=== PATIENT | female | born 1945 | race African-American/Black ===

== ENCOUNTER 2016-12-14 17:33 | Emergency (ER) | payer MEDICARE ==
[2016-12-14] MEDS ORDERED: ACETAMINOPHEN 325 MG TABLET PO ONE (18:11)
--- NOTE | 2016-12-14 18:11 | ER Document Report ---
ED Medical Screen (RME) - General Stated Complaint: COUGH/VOMITING Time seen by provider: 18:08 Mode of Arrival: Ambulatory Information source: Patient Notes: 71-year-old female presents to ED for runny nose cough congestion sinus pressure with headache and vomiting from the cough since yesterday. States she' s vomited 3 times today with cough. Days last time she vomited was between 3 and 4. Temperature is 99.6 in the RME. I have greeted and performed a rapid initial assessment of this patient. A comprehensive ED assessment and evaluation of the patient, analysis of test results and completion of medical decision making process will be conducted by an additional ED providers. TRAVEL OUTSIDE OF THE [place] IN LAST 30 DAYS: No - Related Data Allergies/Adverse Reactions: No Known Allergies Allergy (Verified 12/14/16 18:06) Past Medical History - Past Medical History Cardiac Medical History: Reports: Hx Hypertension Denies: Hx Coronary Artery Disease, Hx Heart Attack Pulmonary Medical History: Denies: Hx Asthma, Hx Bronchitis, Hx COPD, Hx Pneumonia Neurological Medical History: Denies: Hx Cerebrovascular Accident, Hx Seizures Musculoskeltal Medical History: Denies Hx Arthritis Past Surgical History: Denies: Hx Hysterectomy - Immunizations Hx Diphtheria, Pertussis, Tetanus Vaccination: Yes Physical Exam - Vital signs Vitals: Temp Pulse Resp BP Pulse Ox 99.6 F 101 H 20 174/84 H 97 12/14/16 17:55 12/14/16 17:55 12/14/16 17:55 12/14/16 17:55 12/14/16 17:55 Course - Vital Signs Vital signs: Temp Pulse Resp BP Pulse Ox 99.6 F 101 H 20 174/84 H 97 12/14/16 17:55 12/14/16 17:55 12/14/16 17:55 12/14/16 17:55 12/14/16 17:55
[2016-12-14] MEDS ORDERED: ONDANSETRON 4 MG TAB.RAPDIS PO ONE (19:20)
[2016-12-14] MEDS ORDERED: NORMAL SALINE 1000 ML 1,000 ML IV ONE (19:21)
[2016-12-14] MEDS ORDERED: HYDROCODONE/ACETAMINOPHEN 5-325 MG TABLET PO ONE (19:21)
--- NOTE | 2016-12-14 19:25 | ER Document Report ---
ED General - General Chief Complaint: Cold Symptoms Stated Complaint: COUGH/VOMITING Mode of Arrival: Ambulatory Notes: Patient is a 71 year old female that comes to the ED for chief complaint of cough, vomiting, chills, sinus congestion, and a headache since yesterday. Patient states she feels run down, she has vomited x3 today, she reports normal bowel movements. She denies chest pain, shortness of breath, denies any particular abdominal pain. PMH DMII on PO meds, HTN. TRAVEL OUTSIDE OF THE [place] IN LAST 30 DAYS: No - Related Data Allergies/Adverse Reactions: No Known Allergies Allergy (Verified 12/14/16 18:06) Past Medical History - General Information source: Patient - Social History Smoking Status: Never Smoker Chew tobacco use (# tins/day): No Frequency of alcohol use: None Drug Abuse: None Lives with: Family Family History: Reviewed & Not Pertinent Patient has suicidal ideation: No Patient has homicidal ideation: No - Past Medical History Cardiac Medical History: Reports: Hx Hypertension Denies: Hx Coronary Artery Disease, Hx Heart Attack Pulmonary Medical History: Denies: Hx Asthma, Hx Bronchitis, Hx COPD, Hx Pneumonia Neurological Medical History: Denies: Hx Cerebrovascular Accident, Hx Seizures Endocrine Medical History: Reports: Hx Diabetes Mellitus Type 2 Renal/ Medical History: Denies: Hx Peritoneal Dialysis Musculoskeltal Medical History: Denies Hx Arthritis Past Surgical History: Denies: Hx Hysterectomy - Immunizations Hx Diphtheria, Pertussis, Tetanus Vaccination: Yes Hx Pneumococcal Vaccination: 07/31/14 Review of Systems - Review of Systems Constitutional: No symptoms reported EENT: See HPI Cardiovascular: No symptoms reported Respiratory: See HPI Gastrointestinal: No symptoms reported Genitourinary: No symptoms reported Female Genitourinary: No symptoms reported Musculoskeletal: No symptoms reported Skin: No symptoms reported Hematologic/Lymphatic: No symptoms reported Neurological/Psychological: No symptoms reported Physical Exam - Vital signs Vitals: Temp Pulse Resp BP Pulse Ox 99.6 F 101 H 20 174/84 H 97 12/14/16 17:55 12/14/16 17:55 12/14/16 17:55 12/14/16 17:55 12/14/16 17:55 Interpretation: Normal - General General appearance: Appears well, Alert In distress: None - HEENT Head: Normocephalic, Atraumatic Eyes: Normal Pupils: PERRL - Respiratory Respiratory status: No respiratory distress. No: Respiratory distress, Labored , Tachypnea Breath sounds: Nonproductive cough. No: Decreased air movement, Rales, Stridor , Wheezing - Cardiovascular Rhythm: Regular. No: Tachycardia - no tachycardia on my exam Heart sounds: Normal auscultation, S1 appreciated, S2 appreciated Murmur: No - Abdominal Inspection: Normal Distension: No distension Bowel sounds: Normal Tenderness: Nontender Organomegaly: No organomegaly - Back Back: Normal, Nontender. 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 Clear lungs, no tachypnea or labored breathing, patient is alert and conversational. Soft benign abdomen but patient did have a vomiting episode. Given Harvest and Zofran, IV fluids. Because of age, diabetes, fever, obtaining laboratory workup. Laboratory workup shows no leukocytosis or bandemia, chemistries unremarkable, on reexamination patient is even better in appearance. Strep negative, influenza negative, pulse oxygenation ranging from 95-97% on room air with no labored breathing and clear lung sounds. Urine shows large leukocyte esterase and white blood cells, however patient denies any lower abdominal or flank pain , denies urinary symptoms. Culture placed. Family is at bedside. Patient given a dose of doxycycline although this is most likely viral in nature. Patient feeling much improved, I discussed comfort level of being at home, patient and family state they want to go home but patient will be covered with doxycycline, given nausea meds, given Harvest for pain/cough, patient instructed to return immediately if she develops shortness of breath, fever that will not respond to medication, severe headache, chest pain, or any other worsening symptoms. Patient and family members state understanding and agreement. - Vital Signs Vital signs: Temp Pulse Resp BP Pulse Ox 99.7 F 100 18 122/71 94 12/14/16 22:07 12/14/16 22:07 12/14/16 22:07 12/14/16 22:07 12/14/16 22:07 - Laboratory Result Diagrams: 12/14/16 19:52 12/14/16 19:52 Laboratory results interpreted by me: 12/14/16 12/14/16 12/14/16 19:52 19:52 19:52 Hct 35.1 L Seg Neutrophils % 85.8 H Lymphocytes % 8.2 L Absolute Neutrophils 8.3 H Sodium 130.3 L Chloride 92 L Est GFR ( Amer) 58 L Est GFR (Non-Af Amer) 48 L Glucose 111 H Urine Blood SMALL H Ur Leukocyte Esterase LARGE H Discharge - Discharge Clinical Impression: Cough, Sore throat Vomiting Qualifiers: Vomiting type: unspecified Vomiting Intractability: non-intractable Nausea presence: with nausea Qualified Code(s): R11.2 - Nausea with vomiting, unspecified Condition: Stable Disposition: HOME, SELF-CARE Additional Instructions: Your influenza and strep tests are negative, chest x-ray does not show pneumonia. Continue to hydrate, rest, take the Zofran for nausea if needed, take the Harvest for cough/pain if, take the doxycycline antibiotic as directed. Follow-up with your primary care this week for a reevaluation. Return to the emergency department for any concerning or worsening symptoms including difficulty breathing, uncontrolled vomiting, etc. Prescriptions: Doxycycline Hyclate 100 mg PO BID #14 capsule Hydrocodone/Acetaminophen [Harvest 5-325 mg Tablet] 1 - 2 tab PO ASDIR #12 tablet Ondansetron [Zofran Odt 4 mg Tablet] 1 - 2 tab PO Q4H PRN #15 tab.rapdis PRN Reason: For Nausea/Vomiting Referrals: CARI ANTONIO MD [Primary Care Provider] - Follow up in 3-5 days
[2016-12-14 20:14] LABS: ABSOLUTE LYMPHOCYTES (AUTO) 0.8 10^3/uL (0.5-4.7); ABSOLUTE MONOCYTES (AUTO) 0.5 10^3/uL (0.1-1.4); ABSOLUTE NEUT (AUTO) 8.3 10^3/uL (1.7-8.2); BASOPHILS % (AUTO) 0.3 % (0-2); EOSINOPHILS % (AUTO) 0.3 % (0-6); HEMATOCRIT 35.1 % (36.0-47.0); HEMOGLOBIN 12.1 g/dL (12.0-15.5); HGB HCT DIFFERENCE 1.2; LYMPHOCYTES % (AUTO) 8.2 % (13-45); MEAN CORPUSCULAR HGB CONC 34.4 g/dL (32.0-36.0); MEAN CORPUSCULAR VOLUME 90 fl (80-97); MONOCYTES % (AUTO) 5.4 % (3-13); RED CELL DISTRIBUTION WIDTH 13.7 % (11.5-14.0); SEGMENTED NEUTROPHILS % (AUTO) 85.8 % (42-78); WHITE BLOOD COUNT 9.7 10^3/uL (4.0-10.5)
[2016-12-14 20:33] LABS: ALANINE AMINOTRANSFERASE 32 U/L (9-52); ALBUMIN 3.8 g/dL (3.5-5.0); ALKALINE PHOSPHATASE 63 U/L (38-126); ANION GAP 10 (5-19); ASPARTATE AMINO TRANSFERASE 26 U/L (14-36); BILIRUBIN,TOTAL 0.5 mg/dL (0.2-1.3); BLOOD UREA NITROGEN 19 mg/dL (7-20); CARBON DIOXIDE 28 mmol/L (22-30); CHLORIDE 92 mmol/L (98-107); CREATININE RESULT 1.13 mg/dL (0.52-1.25); GLUCOSE 111 mg/dL (75-110); POTASSIUM 3.8 mmol/L (3.6-5.0); SODIUM 130.3 mmol/L (137-145); TOTAL PROTEIN 6.8 g/dL (6.3-8.2)
[2016-12-14 20:45] LABS: APPEARANCE,URINE SLIGHTLY-CLOUDY; BILIRUBIN,URINE NEGATIVE (NEGATIVE); GLUCOSE, URINE NEGATIVE (NEGATIVE); KETONES,URINE NEGATIVE (NEGATIVE); LEUKOCYTE ESTERASE,URINE LARGE (NEGATIVE); NITRITE,URINE NEGATIVE (NEGATIVE); PROTEIN,URINE NEGATIVE (NEGATIVE); UROBILINOGEN,URINE NEGATIVE mg/dL (<2.0)
[2016-12-14] MEDS ORDERED: HYDROCODONE/ACETAMINOPHEN 5-325 MG 6 TAB/DSPK PO PRN (21:44)
[2016-12-14] MEDS ORDERED: ONDANSETRON ODT 4 MG TAB (6 TAB/DSPK) PO PRN (21:44)
[2016-12-14] MEDS ORDERED: DOXYCYCLINE HYCLATE 100 MG TABLET PO ONE (21:44)
[2016-12-14 22:17] VITALS: BP 122/71
== END 2016-12-14 22:10 | disposition home or self-care (01) ==
LOC: ER 17:33
DX: R05 Cough (principal); R11.2 Nausea with vomiting, unspecified; J02.9 Acute pharyngitis, unspecified; R50.9 Fever, unspecified; R09.81 Nasal congestion; R51 Headache; I10 Essential (primary) hypertension; E11.9 Type 2 diabetes mellitus without complications; Z79.899 Other long term (current) drug therapy
CPT/HCPCS: 99283; 36415; 87070; 87086; 87880; 85025; 80053; 81001; 87804; 71020; A9270 ×6; J7030; S0119

== ENCOUNTER 2016-12-21 15:57 | Inpatient (IN) | payer MEDICARE ==
--- NOTE | 2016-12-21 16:12 | ER Document Report ---
ED Medical Screen (RME) - General Stated Complaint: WEAKNESS/POSSIBLE DEHYDRATION Mode of Arrival: Ambulatory Information source: Patient Notes: Patient reports feeling dehydrated and near syncope at home. Patient complains of diarrhea for the past week. No fever. No pain hx: Diabetes, hypertension I have greeted and performed a rapid initial assessment of this patient. A comprehensive ED assessment and evaluation of the patient, analysis of test results and completion of the medical decision making process will be conducted by additional ED providers. TRAVEL OUTSIDE OF THE [place] IN LAST 30 DAYS: No - Related Data Allergies/Adverse Reactions: No Known Allergies Allergy (Verified 12/21/16 16:08) Past Medical History - Past Medical History Cardiac Medical History: Reports: Hx Hypertension Denies: Hx Coronary Artery Disease, Hx Heart Attack Pulmonary Medical History: Denies: Hx Asthma, Hx Bronchitis, Hx COPD, Hx Pneumonia Neurological Medical History: Denies: Hx Cerebrovascular Accident, Hx Seizures Endocrine Medical History: Reports: Hx Diabetes Mellitus Type 2 Renal/ Medical History: Denies: Hx Peritoneal Dialysis Musculoskeltal Medical History: Denies Hx Arthritis Past Surgical History: Denies: Hx Hysterectomy - Immunizations Hx Diphtheria, Pertussis, Tetanus Vaccination: Yes Physical Exam - Vital signs Vitals: Temp Pulse Resp BP Pulse Ox 97.4 F 71 14 102/53 L 99 12/21/16 16:03 12/21/16 16:03 12/21/16 16:03 12/21/16 16:03 12/21/16 16:03 - General General appearance: Appears well, Alert In distress: None - Respiratory Respiratory status: No respiratory distress Breath sounds: Nonproductive cough Course - Vital Signs Vital signs: Temp Pulse Resp BP Pulse Ox 97.4 F 71 14 102/53 L 99 12/21/16 16:03 12/21/16 16:03 12/21/16 16:03 12/21/16 16:03 12/21/16 16:03
[2016-12-21 17:27] LABS: ABSOLUTE EOSINOPHILS # (AUTO) 0.1 10^3/uL (0.0-0.6); ABSOLUTE LYMPHOCYTES (AUTO) 1.9 10^3/uL (0.5-4.7); ABSOLUTE MONOCYTES (AUTO) 0.6 10^3/uL (0.1-1.4); ABSOLUTE NEUT (AUTO) 5.3 10^3/uL (1.7-8.2); BASOPHILS % (AUTO) 0.3 % (0-2); EOSINOPHILS % (AUTO) 1.6 % (0-6); HEMATOCRIT 38.9 % (36.0-47.0); HEMOGLOBIN 13.2 g/dL (12.0-15.5); HGB HCT DIFFERENCE 0.7; LYMPHOCYTES % (AUTO) 23.6 % (13-45); MEAN CORPUSCULAR HEMOGLOBIN 30.9 pg (27.0-33.4); MEAN CORPUSCULAR HGB CONC 34.1 g/dL (32.0-36.0); MEAN CORPUSCULAR VOLUME 91 fl (80-97); MONOCYTES % (AUTO) 7.8 % (3-13); RED BLOOD COUNT 4.29 10^6/uL (3.72-5.28); RED CELL DISTRIBUTION WIDTH 14.3 % (11.5-14.0); SEGMENTED NEUTROPHILS % (AUTO) 66.7 % (42-78); WHITE BLOOD COUNT 7.9 10^3/uL (4.0-10.5)
[2016-12-21 17:49] LABS: ALANINE AMINOTRANSFERASE 36 U/L (9-52); ALBUMIN 3.8 g/dL (3.5-5.0); ALKALINE PHOSPHATASE 72 U/L (38-126); ANION GAP 14 (5-19); ASPARTATE AMINO TRANSFERASE 29 U/L (14-36); BILIRUBIN,TOTAL 0.6 mg/dL (0.2-1.3); BLOOD UREA NITROGEN 22 mg/dL (7-20); CARBON DIOXIDE 25 mmol/L (22-30); CHLORIDE 96 mmol/L (98-107); CREATININE RESULT 2.05 mg/dL (0.52-1.25); GLUCOSE 117 mg/dL (75-110); MAGNESIUM 1.5 mg/dL (1.6-2.3); POTASSIUM 3.9 mmol/L (3.6-5.0); SODIUM 134.5 mmol/L (137-145); TOTAL PROTEIN 7.1 g/dL (6.3-8.2)
--- NOTE | 2016-12-21 20:52 | ER Document Report ---
ED GI/ - General Mode of Arrival: Ambulatory Information source: Patient TRAVEL OUTSIDE OF THE [place] IN LAST 30 DAYS: No - HPI Patient complains to provider of: Diarrhea Onset: Last week - 6 days Associated symptoms: Other - See above <MARIAH HASSAN - Last Filed: 12/21/16 23:30> <DELFINA GARDNER - Last Filed: 12/21/16 23:56> <LUAN ENCARNACION - Last Filed: 12/22/16 03:00> - General Chief Complaint: Diarrhea Stated Complaint: Diarrhea Notes: Patient is a 71 year old female, with a past medical history including HTN, who presents to the emergency department complaining of diarrhea onset 6 days ago. Patient states she was seen at this facility one week ago for cold like symptoms and was given antibiotics for a possible UTI, since her visit her cough has persisted but her shortness of breath has gone away and so has her vomiting. Patient complains of weakness and feeling tired. Patient states that the diarrhea has been fairly regular and started the day after she was given the antibiotics, patient reports she will have an episode after every meal. Patient denies any dysuria and abdominal pain. PCP: Dr. Aleman (MARIAH HASSAN) - Related Data Allergies/Adverse Reactions: No Known Allergies Allergy (Verified 12/21/16 16:08) Past Medical History - General Information source: Patient - Social History Smoking Status: Never Smoker Chew tobacco use (# tins/day): No Family History: Reviewed & Not Pertinent Patient has suicidal ideation: No Patient has homicidal ideation: No - Past Medical History Cardiac Medical History: Reports: Hx Hypertension Endocrine Medical History: Reports: Hx Diabetes Mellitus Type 2 Past Surgical History: Reports: Hx Gynecologic Surgery - , Hx Orthopedic Surgery - left shoulder - Immunizations Hx Diphtheria, Pertussis, Tetanus Vaccination: Yes Hx Pneumococcal Vaccination: 07/31/14 <MARIAH HASSAN - Last Filed: 12/21/16 23:30> Review of Systems - Review of Systems Constitutional: See HPI, Weakness, Other - Tiredness EENT: No symptoms reported Cardiovascular: No symptoms reported Respiratory: See HPI, Cough Gastrointestinal: See HPI, Diarrhea. denies: Abdominal pain, Vomiting Genitourinary: denies: Dysuria Female Genitourinary: No symptoms reported Musculoskeletal: No symptoms reported Skin: No symptoms reported Hematologic/Lymphatic: No symptoms reported Neurological/Psychological: No symptoms reported -: Yes All other systems reviewed and negative <MARIAH HASSAN - Last Filed: 12/21/16 23:30> Physical Exam - Vital signs Interpretation: Normal - General General appearance: Appears well, Alert - HEENT Head: Normocephalic, Atraumatic - Respiratory Respiratory status: No respiratory distress Chest status: Nontender Breath sounds: Normal Chest palpation: Normal - Cardiovascular Rhythm: Regular Heart sounds: Normal auscultation Murmur: No - Abdominal Inspection: Normal Distension: No distension Bowel sounds: Normal Tenderness: Nontender Organomegaly: No organomegaly - Extremities General upper extremity: Normal inspection General lower extremity: Normal inspection. No: Edema - Neurological Neuro grossly intact: Yes Cognition: Normal Orientation: AAOx4 Ashley Coma Scale Eye Opening: Spontaneous Ashley Coma Scale Verbal: Oriented Ashley Coma Scale Motor: Obeys Commands Ashley Coma Scale Total: 15 Speech: Normal - Psychological Associated symptoms: Normal affect, Normal mood - Skin Skin Temperature: Warm Skin Moisture: Dry Skin Color: Normal <MARIAH HASSAN - Last Filed: 12/21/16 23:30> Course - Laboratory Result Diagrams: 12/21/16 17:05 12/21/16 17:05 - Consults Dr. Cope Time consulted: 20:55 <MARIAH HASSAN - Last Filed: 12/21/16 23:30> - Laboratory Result Diagrams: 12/21/16 17:05 12/21/16 17:05 <DELFINA GARDNER - Last Filed: 12/21/16 23:56> - Laboratory Result Diagrams: 12/21/16 17:05 12/21/16 17:05 <LUAN ENCARNACION - Last Filed: 12/22/16 03:00> - Re-evaluation Re-evalutation: 12/21/16 21:02 I personally performed the services described in the documentation, reviewed and edited the documentation which was dictated to my scribe in my presence, and it accurately records my words and actions. Patient presents to the emergency Department with chief complaint of diarrhea since last Tuesday. Patient was seen and evaluated on Tuesday of last week placed on doxycycline for what I presume was a urinary tract infection the patient is not clear started having continuous non-bloody diarrhea since that time. States for the last day or 2 she's been unable to keep anything down because as soon as she tries to eat or drink something she has more diarrhea. On examination she is well-appearing nontoxic she's not hypotensive or tachycardic. Her urine creatinine is 19 and 1.3 at baseline on 214 and today is 22 and 2.05. She has been unable to give us a stool culture at the bedside IV fluids are started and she is admitted for observation with diarrhea stool culture pending and dehydration. Consult to Dr. Cope at 2200 he stated he cannot take any more patients right now. At 0000 he is still unable to take any new patients. Case will be signed out to Dr. Encarnacion pending admission 12/21/16 21:05 12/21/16 23:56 (DELFINA GARDNER) 12/22/16 02:[address] Cope. He has accepted patient as inpatient telemetry and recommends urine culture, blood culture, repeating BMP, magnesium and starting normal saline at 125 mL per hour. He would also like 1 g of Rocephin (LUAN ENCARNACION) - Vital Signs Vital signs: Temp Pulse Resp BP Pulse Ox 97.4 F 71 17 108/64 97 12/21/16 16:03 12/21/16 16:03 12/22/16 02:01 12/22/16 02:01 12/22/16 02:01 (MARIAH HASSAN) (EDLFINA GARDNER) (LUAN ENCARNAICON) - Laboratory Laboratory results interpreted by me: 12/21/16 12/21/16 12/21/16 17:05 17:05 22:21 RDW 14.3 H Sodium 134.5 L Chloride 96 L BUN 22 H Creatinine 2.05 H Est GFR ( Amer) 29 L Est GFR (Non-Af Amer) 24 L Glucose 117 H Magnesium 1.5 L Urine Protein 30 H Urine Blood SMALL H Ur Leukocyte Esterase SMALL H (MARIAH HASSAN) (DELFINA GARDNER) (LUAN ENCARNACION) - EKG Interpretation by Me Additional EKG results interpreted by me: 12/21/16 20:59 EKG shows sinus rhythm at 75 beats per first-degree AV block no acute ST segment elevation or depression (DELFINA GARDNER) - Consults Dr. Cope Reason for consultation: 12/21/16 20:[address] Cope to call back regarding admission 12/21/16 21:[address] Cope 12/21/16 22:37 Dr. Cope returned call, refuses to admit patient at this time after agreeing to discuss admission of 2 others (MARIAH HASSAN) Discharge <MARIAH HASSAN - Last Filed: 12/21/16 23:30> - Discharge Admitting Provider: Hospitalist Unit Admitted: Medical Floor <DELFINA GARDNER - Last Filed: 12/21/16 23:56> - Discharge Admitting Provider: [facility] Unit Admitted: Telemetry <LUAN ENCARNACION - Last Filed: 12/22/16 03:00> - Discharge Clinical Impression: acute diarrhea with dehydration Acute renal failure Qualifiers: Acute renal failure type: unspecified Qualified Code(s): N17.9 - Acute kidney failure, unspecified Condition: Stable Disposition: ADMITTED OBSERVATION Scribe Documentation - Scribe Written by Scribe:: [email or web address] Foster, 12/21/16, 2330 acting as scribe for :: New <MARIAH HASSAN - Last Filed: 12/21/16 23:30>
[2016-12-21] MEDS ORDERED: NORMAL SALINE 1000 ML 1,000 ML IV ONE (20:53)
--- NOTE | 2016-12-21 21:59 | EKG REPORT ---
SEVERITY:- ABNORMAL ECG - SINUS RHYTHM FIRST DEGREE AV BLOCK LEFT ANTERIOR FASCICULAR BLOCK LVH BY VOLTAGE : Confirmed by: Ernestine Mcintosh MD 21-Dec-2016 21:59:13
[2016-12-21 22:56] LABS: APPEARANCE,URINE SLIGHTLY-CLOUDY; BILIRUBIN,URINE NEGATIVE (NEGATIVE); GLUCOSE, URINE NEGATIVE (NEGATIVE); KETONES,URINE NEGATIVE (NEGATIVE); LEUKOCYTE ESTERASE,URINE SMALL (NEGATIVE); NITRITE,URINE NEGATIVE (NEGATIVE); PROTEIN,URINE 30 mg/dL (NEGATIVE); URINE SPECIFIC GRAVITY 1.006; UROBILINOGEN,URINE NEGATIVE mg/dL (<2.0)
[2016-12-22] MEDS ORDERED: NORMAL SALINE 1000 ML 1,000 ML IV ONE ×2 (01:23→03:00)
[2016-12-22] MEDS: MAGNESIUM SULFATE/D5W 100 ML IV SCH ×2 (03:09→05:00)
[2016-12-22] MEDS ORDERED: DEXTROSE 50%-WATER 25 GM/50 ML DISP.SYRIN IV PRN ×2 (04:55)
[2016-12-22] MEDS ORDERED: GLUCAGON,HUMAN RECOMB 1 MG INJ IM PRN (04:55)
[2016-12-22] MEDS ORDERED: DEXTROSE 40% GEL 15 GM TUBE PO PRN ×2 (04:55)
[2016-12-22] MEDS ORDERED: INSULIN LISPRO 100 UNIT/ML 3 ML VIAL SUBCUT PRN (04:55)
[2016-12-22] MEDS ORDERED: ACETAMINOPHEN 325 MG TABLET PO PRN (05:10)
[2016-12-22] MEDS ORDERED: NORMAL SALINE 1000 ML 1,000 ML IV PRN ×2 (05:14→13:37)
--- NOTE | 2016-12-22 05:22 | PDOC H&P ---
History of Present Illness Admission Date/PCP: 12/21/16 23:48 CARI ANTONIO MD Patient complains of: Diarrhea History of Present Illness: ZELDA BAZZI is a 71 year old -Russian female with underlying hyperlipidemia, type II diabetes mellitus, hypothyroidism, hypertension, and arthritis who presents to the emergency room for evaluation of above complaint. Was seen in our emergency room one week ago for cold-like symptoms and given antibiotics for possible UTI. Patient thinks doxycycline. Was also experiencing nausea and vomiting at that time, but no diarrhea. Approximately 2 days after starting the antibiotics, her cold symptoms, nausea and vomiting had resolved, but patient began experiencing nonbloody non-melenic diarrhea after each meal. No diarrhea between meals. No friends or family with similar complaints. No unusual oral intake. Complaining of fatigue and generalized weakness. No dysuria or abdominal pain. No history of Clostridium difficile infection. Patient has been discussed with emergency room physician who evaluated the patient. . Laboratory results are listed in [facility] and are reviewed. X-ray summary results are listed below, with full report(s) reviewed. . EKG reviewed. No prior EKG available for comparison. Social history/personal habits: . Has children. Son lives with her. 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 No use of alcohol tobacco or illicit drugs. Allergies/adverse reactions NKDA. Home medications are reviewed by discussion with patient and have been reconciled by nursing staff in [facility]. [facility] may not accurately reflect patient's true medications, dosages, and/or frequencies. REVIEW OF SYSTEMS: Constitutional: No fever or chills. Eyes: Wears glasses. ENT: No swallowing problems or complaints. No hearing problems or complaints. Pulmonary: No current complaints. Cardiovascular: No current complaints, including chest pain. Gastrointestinal: See history and present illness. Skin: No current complaints, including rashes. Hematologic: Easy bruising. Neurologic: No current complaints, including numbness or tingling. Musculoskeletal: Joint pain from arthritis. Psychiatric: No current complaints, including anxiety or depression. Endocrine: No current complaints, including polyuria. Genitourinary: No current complaints, including dysuria. PHYSICAL EXAMINATION: 5 feet 4 inches tall. 63.1 kg. BMI 23.9 kg/m. Blood pressure 120/57. Pulse 88 and regular. 97% saturation on room air. Respirations are 13 and unlabored. Temperature 97.4. Well-nourished well-developed -Russian female appearing approximately her stated age. Pleasant awake alert and cooperative. Mildly anxious. No agitation. Perhaps slightly fatigued. 2 sons are present; patient approves. Emergency room nurse Mable is present. Skin is warm and dry. No grossly obvious evidence of rash in areas of skin examined. No subcutaneous nodules palpated. ENT: Hearing grossly normal to normal conversation. Tongue midline on protrusion pink and slightly tacky. Eyes: No scleral icterus. Pupils equal and reactive to light at 4 mm. [place] conjunctivae. Neck is supple and nontender to gentle active range of motion and palpation. Midline trachea. No palpable thyroid nodule mass enlargement or tenderness. Lymphatic: No palpable cervical or clavicular nodes. Neck and lymphatic exams limited by patient body habitus. Psychiatric: Reasonable insight into acute and chronic medical issues. Oriented to time location and why here. Lungs: Auscultation reveals clear and equal breath sounds bilaterally. No use of accessory respiratory muscles. Cardiovascular: Heart regular rate and rhythm, without gallop murmur or rub. No carotid or abdominal aortic bruits. No ankle or pedal edema. Faintly palpable dorsalis pedis pulses. Abdomen: soft, slightly, distended nontender with positive bowel sounds. Unable to adequately evaluate abdomen for masses or organomegaly due to distention. Extremities: Feet are warm and dry. No calf tenderness to compression. No grossly obvious visual evidence of calf swelling. Gentle manipulation of lower extremities fails to reveal any obvious evidence of injury or instability to knees hips or ankles. Neurologic: Moves upper extremities grossly normally. Patellar reflexes absent. Absent Babinski. Light touch is intact at feet. Dorsiflexion and plantarflexion of feet 5 / 5 and symmetric. Past Medical History Cardiac Medical History: Reports: Hyperlipidema, Hypertension Denies: Congestive Heart Failure, Coronary Artery Disease, DVT, Myocardial Infarction, Pulmonary Embolism Pulmonary Medical History: Denies: Asthma, Bronchitis, Chronic Obstructive Pulmonary Disease (COPD), Pneumonia EENT Medical History: Reports: Eyes - Glasses Denies: Ears, Throat Neurological Medical History: Denies: Hemorrhagic CVA, Ischemic CVA, Seizures Endocrine Medical History: Reports: Diabetes Mellitus Type 2 Renal/ Medical History: Reports: None GI Medical History: Denies: Cirrhosis, Gastroesophageal Reflux Disease, Hepatitis, Peptic Ulcer Disease Musculoskeltal Medical History: Reports: Arthritis Skin Medical History: Reports: None Denies: Eczema, Psoriasis Psychiatric Medical History: Denies: Alcohol Dependency, Depression, General Anxiety Disorder, Substance Abuse, Tobacco Dependency Hematology: Reports: Other - Easy bruising Denies: Anemia Infectious Medical History: Denies: Clostridium Difficile, Hepatitis B, Hepatitis C Past Surgical History Past Surgical History: Reports: Orthopedic Surgery - left shoulder Denies: Hysterectomy Social History Information Source: Patient, Emergency Med Personnel, Outside Facility Records Lives with: Family Smoking Status: Never Smoker Frequency of Alcohol Use: None Drugs: None - Advance Directive Resuscitation Status: Full Code Surrogate healthcare decision maker:: Family Family History Family History: Reviewed & Not Pertinent Parental Family History Reviewed: Yes Children Family History Reviewed: Yes Sibling(s) Family History Reviewed.: Yes Medication/Allergy Home Medications: Aspirin [Ecotrin] 81 mg PO DAILY 04/01/16 Benazepril/Hydrochlorothiazide [Benazepril-Hctz 20-25 mg Tab] 1 tab PO DAILY 12/16 Carvedilol [Coreg] 25 mg PO Q12 04/01/16 Cetirizine HCl [Zyrtec 10 mg Tablet] 10 mg PO DAILY 04/01/16 Diltiazem HCl [Diltiazem 24Hr Cd] 360 mg PO DAILY 04/01/16 Levothyroxine Sodium [Synthroid 0.075 mg Tablet] 0.075 mg PO DAILY 04/01/16 Linagliptin/Metformin HCl [Jentadueto 2.5 mg-1000 mg Tab] 1 tab PO BID 04/01/16 Lovastatin [Altoprev] 20 mg PO QHS 04/01/16 Montelukast Sodium 10 mg PO QHS 04/01/16 Multivitamin [Multivitamins] 1 each PO DAILY 04/01/16 Allergies/Adverse Reactions: No Known Allergies Allergy (Verified 12/21/16 16:08) Physical Exam Vital Signs: Temp Pulse Resp BP Pulse Ox 97.4 F 71 17 108/64 97 12/21/16 16:03 12/21/16 16:03 12/22/16 02:01 12/22/16 02:01 12/22/16 02:01 Results Impressions: Chest X-Ray 12/21/16 16:11 IMPRESSION: NO SIGNIFICANT RADIOGRAPHIC FINDING IN THE CHEST. Assessment & Plan - Diagnosis (1) Abnormal urinalysis Is this a current diagnosis for this admission?: YesPlan: Negative urine culture from the 14th of this month. Blood and repeat urine cultures obtained. Has received one dose of intravenous antibiotics; will hold further at this point in time. (2) Acute renal failure (ARF) Qualifiers: Acute renal failure type: unspecified Qualified Code(s): N17.9 - Acute kidney failure, unspecified Is this a current diagnosis for this admission?: YesPlan: Likely prerenal in nature. IV fluids. Serial chemistry. Renal ultrasound results noted. I have strongly encouraged patient not to get out of bed without notifying staff , to avoid a fall with injury. Knee high SCDs for DVT prophylaxis, along with subcutaneous heparin. Impression and plans were discussed with patient, and sons, all of whom concur. Time spent in evaluation and management of patient: 65 minutes. (3) Diarrhea Qualifiers: Diarrhea type: unspecified type Qualified Code(s): R19.7 - Diarrhea , unspecified Is this a current diagnosis for this admission?: YesPlan: Stool for C. difficile pending. (4) Hypomagnesemia Is this a current diagnosis for this admission?: YesPlan: Magnesium supplement, with follow-up level. (5) Diabetes mellitus type 2 in nonobese Is this a current diagnosis for this admission?: YesPlan: Clinical liquid diet. Accu-Cheks with appropriate sliding scale coverage.Resume home medications as appropriate once these have been reviewed. (6) Hyperlipidemia Qualifiers: Hyperlipidemia type: unspecified Qualified Code(s): E78.5 - Hyperlipidemia, unspecified Is this a current diagnosis for this admission?: YesPlan: Resume home medications as appropriate once these have been reviewed. (7) Hypothyroid Qualifiers: Hypothyroidism type: unspecified Qualified Code(s): E03.9 - Hypothyroidism, unspecified Is this a current diagnosis for this admission?: YesPlan: Resume home medications as appropriate once these have been reviewed. - Inpatient Certification Based on my medical assessment, after consideration of the patient's comorbidities, presenting symptoms, or acuity I expect that the services needed warrant INPATIENT care.: Yes I certify that my determination is in accordance with my understanding of Medicare's requirements for reasonable and necessary INPATIENT services [42 CFR 412.3e].: Yes Medical Necessity: Need Close Monitoring Due to Risk of Patient Decompensation, Need For IV Fluids, Risk of Complication if Not Cared For in Hospital, Risk of Diagnosis Which Will Require Inpatient Eval/Care/Monitoring Post Hospital Care: D/C or Transfer Summary
[2016-12-22 06:12] LABS: ABSOLUTE EOSINOPHILS # (AUTO) 0.1 10^3/uL (0.0-0.6); ABSOLUTE LYMPHOCYTES (AUTO) 1.7 10^3/uL (0.5-4.7); ABSOLUTE MONOCYTES (AUTO) 0.6 10^3/uL (0.1-1.4); ABSOLUTE NEUT (AUTO) 3.9 10^3/uL (1.7-8.2); BASOPHILS % (AUTO) 0.5 % (0-2); EOSINOPHILS % (AUTO) 1.6 % (0-6); HEMATOCRIT 34.7 % (36.0-47.0); HEMOGLOBIN 11.9 g/dL (12.0-15.5); LYMPHOCYTES % (AUTO) 27.2 % (13-45); MEAN CORPUSCULAR HEMOGLOBIN 31.1 pg (27.0-33.4); MEAN CORPUSCULAR HGB CONC 34.3 g/dL (32.0-36.0); MEAN CORPUSCULAR VOLUME 91 fl (80-97); MONOCYTES % (AUTO) 9.3 % (3-13); RED BLOOD COUNT 3.83 10^6/uL (3.72-5.28); RED CELL DISTRIBUTION WIDTH 13.8 % (11.5-14.0); SEGMENTED NEUTROPHILS % (AUTO) 61.4 % (42-78); WHITE BLOOD COUNT 6.3 10^3/uL (4.0-10.5)
[2016-12-22 06:28] LABS: POTASSIUM 3.5 mmol/L (3.6-5.0)
[2016-12-22 06:29] LABS: ANION GAP 12 (5-19); BLOOD UREA NITROGEN 20 mg/dL (7-20); CARBON DIOXIDE 21 mmol/L (22-30); CHLORIDE 105 mmol/L (98-107); CREATININE RESULT 1.56 mg/dL (0.52-1.25); GLUCOSE 120 mg/dL (75-110); MAGNESIUM 1.7 mg/dL (1.6-2.3); SODIUM 138.2 mmol/L (137-145)
[2016-12-22] MEDS: HEPARIN SOD (PORCINE) 5,000 UNIT/ML 1 ML SYRINGE SUBCUT SCH ×2 (10:14→22:36)
[2016-12-22] MEDS ORDERED: LEVOTHYROXINE SODIUM 0.075 MG TABLET PO ONE (11:00)
[2016-12-22] MEDS ORDERED: CARVEDILOL 12.5 MG TABLET PO ONE (11:30)
[2016-12-22] MEDS ORDERED: DILTIAZEM HCL 120 MG CAP.SR.24H PO ONE (11:30)
--- NOTE | 2016-12-22 16:47 | PDOC PROGRESS REPORT ---
Subjective Progress Note for:: 12/22/16 Subjective:: The patient was seen earlier today on rounds. Patient states that she feels much improved in comparison to when she came in. The patient is tolerating clear liquids without issue. Patient is willing to try solid foods at this time. The patient denies any nausea, vomiting, diarrhea, shortness of breath, dizziness, chest pain, heart palpitations, fevers, or chills. The patient has remained afebrile. Blood pressures have been in a good range. When prompted the patient voices no other concerns at this time. Review of systems: The rest of the review of systems is negative. Physical Exam Vital Signs: Temp Pulse Resp BP Pulse Ox 98.4 F 91 14 116/62 100 12/22/16 11:10 12/22/16 11:10 12/22/16 11:10 12/22/16 11:10 12/22/16 11:10 Intake & Output 12/20/16 12/21/16 12/22/16 23:59 23:59 23:59 Weight 63.6 kg General appearance: PRESENT: no acute distress, cooperative, well-developed, well-nourished Head exam: PRESENT: atraumatic, normocephalic Eye exam: PRESENT: conjunctiva pink, EOMI, PERRLA. ABSENT: scleral icterus Ear exam: PRESENT: normal external ear exam Mouth exam: PRESENT: moist, tongue midline Neck exam: ABSENT: carotid bruit, JVD, lymphadenopathy, thyromegaly Respiratory exam: PRESENT: clear to auscultation leonora, symmetrical, unlabored. ABSENT: rales, rhonchi, tachypnea, wheezes Cardiovascular exam: PRESENT: RRR. ABSENT: diastolic murmur, rubs, systolic murmur Pulses: PRESENT: normal dorsalis pedis pul Vascular exam: PRESENT: normal capillary refill GI/Abdominal exam: PRESENT: normal bowel sounds, soft. ABSENT: distended, guarding, mass, organolmegaly, rebound, tenderness Rectal exam: PRESENT: deferred Extremities exam: PRESENT: full ROM. ABSENT: calf tenderness, clubbing, pedal edema Neurological exam: PRESENT: alert, awake, oriented to person, oriented to place , oriented to time, oriented to situation, CN II-XII grossly intact. ABSENT: motor sensory deficit Psychiatric exam: PRESENT: appropriate affect, normal mood. ABSENT: homicidal ideation, suicidal ideation Skin exam: PRESENT: dry, intact, warm. ABSENT: cyanosis, rash Results Laboratory Results: 12/22/16 06:00 12/22/16 06:00 12/22/16 12/22/16 06:00 06:00 WBC 6.3 RBC 3.83 Hgb 11.9 L Hct 34.7 L MCV 91 MCH 31.1 MCHC 34.3 RDW 13.8 Plt Count 282 Seg Neutrophils % 61.4 Lymphocytes % 27.2 Monocytes % 9.3 Eosinophils % 1.6 Basophils % 0.5 Absolute Neutrophils 3.9 Absolute Lymphocytes 1.7 Absolute Monocytes 0.6 Absolute Eosinophils 0.1 Absolute Basophils 0.0 Sodium 138.2 Potassium 3.5 L Chloride 105 Carbon Dioxide 21 L Anion Gap 12 BUN 20 Creatinine 1.56 H Est GFR ( Amer) 40 L Est GFR (Non-Af Amer) 33 L Glucose 120 H Calcium 9.0 Magnesium 1.7 Impressions: Chest X-Ray 12/21/16 16:11 IMPRESSION: NO SIGNIFICANT RADIOGRAPHIC FINDING IN THE CHEST. Renal Ultrasound 12/22/16 00:00 IMPRESSION: NORMAL RENAL AND BLADDER ULTRASOUND. Incidental renal cysts noted. Assessment & Plan - Diagnosis (1) Acute gastroenteritis Is this a current diagnosis for this admission?: YesPlan: Patient symptoms overall are much improved. Patient has had no further diarrhea since admission. (2) Prerenal azotemia Is this a current diagnosis for this admission?: YesPlan: The patient creatinine has improved but will continue to hydrate and repeat care in the a.m. (3) Diarrhea Qualifiers: Diarrhea type: unspecified type Qualified Code(s): R19.7 - Diarrhea , unspecified Is this a current diagnosis for this admission?: Yes (4) Hypomagnesemia Is this a current diagnosis for this admission?: YesPlan: This is been supplemented (5) Diabetes mellitus type 2 in nonobese Is this a current diagnosis for this admission?: YesPlan: Will continue sliding-scale coverage (6) Hyperlipidemia Qualifiers: Hyperlipidemia type: unspecified Qualified Code(s): E78.5 - Hyperlipidemia, unspecified Is this a current diagnosis for this admission?: Yes (7) Hypothyroid Qualifiers: Hypothyroidism type: unspecified Qualified Code(s): E03.9 - Hypothyroidism, unspecified Is this a current diagnosis for this admission?: YesPlan: Will continue home medications. - Time Time Spent with patient: 25-34 minutes Medications reviewed and adjusted accordingly: Yes Anticipated discharge: Home Within: within 24 hours, within 48 hours
[2016-12-22] MEDS ORDERED: POTASSIUM CHLORIDE 10 MEQ TABLET.SA PO ONE (18:30)
[2016-12-22] MEDS ORDERED: MONTELUKAST SODIUM 10 MG TABLET PO SCH (22:00)
[2016-12-22] MEDS ORDERED: (PENDING PHARMACY ID) (Carvedilol [Coreg] 25 MG) PO SCH (22:00)
[2016-12-22] MEDS ORDERED: (PENDING PHARMACY ID) (Lovastatin [Altoprev] 20 MG) PO SCH (22:00)
[2016-12-22] MEDS: LACTOBACILLUS ACIDOPHILUS 250 MG TAB PO SCH (22:36)
[2016-12-22] MEDS: CARVEDILOL 12.5 MG TABLET PO SCH (22:37)
[2016-12-23] MEDS ORDERED: LEVOTHYROXINE SODIUM 0.075 MG TABLET PO SCH ×2 (05:30→10:00)
[2016-12-23 07:06] LABS: ANION GAP 9 (5-19); BLOOD UREA NITROGEN 14 mg/dL (7-20); CALCIUM 8.9 mg/dL (8.4-10.2); CARBON DIOXIDE 24 mmol/L (22-30); CHLORIDE 107 mmol/L (98-107); CREATININE RESULT 1.15 mg/dL (0.52-1.25); GLUCOSE 101 mg/dL (75-110); MAGNESIUM 1.4 mg/dL (1.6-2.3); POTASSIUM 3.7 mmol/L (3.6-5.0); SODIUM 140.3 mmol/L (137-145)
[2016-12-23] MEDS ORDERED: DILTIAZEM HCL 360 MG PO SCH (10:00)
[2016-12-23] MEDS ORDERED: ASPIRIN 81 MG TABLET, ENT COATED PO SCH (10:00)
[2016-12-23] MEDS ORDERED: MULTIVITAMIN TABLET PO SCH (10:00)
[2016-12-23] MEDS ORDERED: DILTIAZEM HCL 120 MG CAP.SR.24H PO SCH (10:00)
[2016-12-23] MEDS: CARVEDILOL 12.5 MG TABLET PO SCH (11:10)
[2016-12-23] MEDS: LACTOBACILLUS ACIDOPHILUS 250 MG TAB PO SCH (11:13)
[2016-12-23] MEDS: HEPARIN SOD (PORCINE) 5,000 UNIT/ML 1 ML SYRINGE SUBCUT SCH (11:15)
[2016-12-23 11:41] VITALS: BP 151/71
[2016-12-23] MEDS ORDERED: ATORVASTATIN CALCIUM 10 MG TABLET PO SCH (22:00)
--- NOTE | 2016-12-24 12:44 | PDOC DISCHARGE SUMMARY ---
General - Admit/Disc Date/PCP Admission Date/Primary Care Provider: 12/22/16 05:10 CARI ANTONIO MD Discharge Date: 12/23/16 - Discharge Diagnosis (1) Acute gastroenteritis Is this a current diagnosis for this admission?: Yes (2) Prerenal azotemia Is this a current diagnosis for this admission?: Yes (3) Hypomagnesemia Is this a current diagnosis for this admission?: Yes (4) Diabetes mellitus type 2 in nonobese Is this a current diagnosis for this admission?: Yes (5) Hyperlipidemia Is this a current diagnosis for this admission?: Yes (6) Hypothyroid Is this a current diagnosis for this admission?: Yes - Additional Information Resuscitation Status: Full Code Discharge Diet: As Tolerated, Regular Discharge Activity: Activity As Tolerated Home Medications: Aspirin [Ecotrin] 81 mg PO DAILY 04/01/16 Benazepril/Hydrochlorothiazide [Benazepril-Hctz 20-25 mg Tab] 1 tab PO DAILY 12/16 Carvedilol [Coreg] 25 mg PO Q12 04/01/16 Cetirizine HCl [Zyrtec 10 mg Tablet] 10 mg PO DAILY 04/01/16 Diltiazem HCl [Diltiazem 24Hr Cd] 360 mg PO DAILY 04/01/16 Levothyroxine Sodium [Synthroid 0.075 mg Tablet] 0.075 mg PO DAILY 04/01/16 Linagliptin/Metformin HCl [Jentadueto 2.5 mg-1000 mg Tab] 1 tab PO BID 04/01/16 Lovastatin [Altoprev] 20 mg PO QHS 04/01/16 Montelukast Sodium 10 mg PO QHS 04/01/16 Multivitamin [Multivitamins] 1 each PO DAILY 04/01/16 History of Present Illness Patient complains of: Diarrhea History of Present Illness: ZELDA BAZZI is a 71 year old -Congol[place] female with underlying hyperlipidemia, type II diabetes mellitus, hypothyroidism, hypertension, and arthritis who presents to the emergency room for evaluation of above complaint. Was seen in our emergency room one week ago for cold-like symptoms and given antibiotics for possible UTI. Patient thinks doxycycline. Was also experiencing nausea and vomiting at that time, but no diarrhea. Approximately 2 days after starting the antibiotics, her cold symptoms, nausea and vomiting had resolved, but patient began experiencing nonbloody non-melenic diarrhea after each meal. No diarrhea between meals. No friends or family with similar complaints. No unusual oral intake. Complaining of fatigue and generalized weakness. No dysuria or abdominal pain. No history of Clostridium difficile infection. Hospital Course Hospital Course: The patient was admitted to a continuous telemetry unit. The patient maintained NPO status and aggressively hydrated. The patient's symptoms improved quickly and the patient was advanced to clear liquid diet. The patient's symptoms of abdominal pain and diarrhea were managed with appropriate probiotic, analgesia and/or antiemetic. The patient is now able to maintain hydration. The patient' s creatinine has normalized. . The patient had complete symptom resolution and is ready for discharge. Physical Exam Vital Signs: Temp Pulse Resp BP Pulse Ox 97.6 F 74 16 151/71 H 99 12/23/16 11:43 12/23/16 11:43 12/23/16 11:43 12/23/16 11:43 12/23/16 11:43 Intake & Output 12/21/16 12/22/16 12/23/16 23:59 23:59 23:59 Intake Total 1290 646 Output Total 1300 1000 Balance -10 -354 Weight 63.6 kg General appearance: PRESENT: no acute distress, cooperative, well-developed, well-nourished Head exam: PRESENT: atraumatic, normocephalic Eye exam: PRESENT: conjunctiva pink, EOMI, PERRLA. ABSENT: scleral icterus Ear exam: PRESENT: normal external ear exam Mouth exam: PRESENT: moist, tongue midline Neck exam: ABSENT: carotid bruit, JVD, lymphadenopathy, thyromegaly Respiratory exam: PRESENT: clear to auscultation leonora, symmetrical, unlabored. ABSENT: rales, rhonchi, tachypnea, wheezes Cardiovascular exam: PRESENT: RRR. ABSENT: diastolic murmur, rubs, systolic murmur Pulses: PRESENT: normal dorsalis pedis pul Vascular exam: PRESENT: normal capillary refill GI/Abdominal exam: PRESENT: normal bowel sounds, soft. ABSENT: distended, guarding, mass, organolmegaly, rebound, tenderness Rectal exam: PRESENT: deferred Extremities exam: PRESENT: full ROM. ABSENT: calf tenderness, clubbing, pedal edema Neurological exam: PRESENT: alert, awake, oriented to person, oriented to place , oriented to time, oriented to situation, CN II-XII grossly intact. ABSENT: motor sensory deficit Psychiatric exam: PRESENT: appropriate affect, normal mood. ABSENT: homicidal ideation, suicidal ideation Skin exam: PRESENT: dry, intact, warm. ABSENT: cyanosis, rash Results Laboratory Results: Labs- Last Values WBC 6.3 10^3/uL (4.0-10.5) 12/22/16 06:00 RBC 3.83 10^6/uL (3.72-5.28) 12/22/16 06:00 Hgb 11.9 g/dL (12.0-15.5) L 12/22/16 06:00 Hct 34.7 % (36.0-47.0) L 12/22/16 06:00 MCV 91 fl (80-97) 12/22/16 06:00 MCH 31.1 pg (27.0-33.4) 12/22/16 06:00 MCHC 34.3 g/dL (32.0-36.0) 12/22/16 06:00 RDW 13.8 % (11.5-14.0) 12/22/16 06:00 Plt Count 282 10^3/uL (150-450) 12/22/16 06:00 Seg Neutrophils % 61.4 % (42-78) 12/22/16 06:00 Lymphocytes % 27.2 % (13-45) 12/22/16 06:00 Monocytes % 9.3 % (3-13) 12/22/16 06:00 Eosinophils % 1.6 % (0-6) 12/22/16 06:00 Basophils % 0.5 % (0-2) 12/22/16 06:00 Absolute Neutrophils 3.9 10^3/uL (1.7-8.2) 12/22/16 06:00 Absolute Lymphocytes 1.7 10^3/uL (0.5-4.7) 12/22/16 06:00 Absolute Monocytes 0.6 10^3/uL (0.1-1.4) 12/22/16 06:00 Absolute Eosinophils 0.1 10^3/uL (0.0-0.6) 12/22/16 06:00 Absolute Basophils 0.0 10^3/uL (0.0-0.2) 12/22/16 06:00 Sodium 140.3 mmol/L (137-145) 12/23/16 06:42 Potassium 3.7 mmol/L (3.6-5.0) 12/23/16 06:42 Chloride 107 mmol/L (98-107) 12/23/16 06:42 Carbon Dioxide 24 mmol/L (22-30) 12/23/16 06:42 Anion Gap 9 (5-19) 12/23/16 06:42 BUN 14 mg/dL (7-20) 12/23/16 06:42 Creatinine 1.15 mg/dL (0.52-1.25) 12/23/16 06:42 Est GFR ( Amer) 56 (>60) L 12/23/16 06:42 Est GFR (Non-Af Amer) 47 (>60) L 12/23/16 06:42 Glucose 101 mg/dL (75-110) 12/23/16 06:42 POC Glucose 90 mg/dL (70-110) 12/23/16 05:23 Calcium 8.9 mg/dL (8.4-10.2) 12/23/16 06:42 Magnesium 1.4 mg/dL (1.6-2.3) L 12/23/16 06:42 Total Bilirubin 0.6 mg/dL (0.2-1.3) 12/21/16 17:05 Direct Bilirubin 0.0 mg/dL (0.0-0.3) 12/21/16 17:05 AST 29 U/L (14-36) 12/21/16 17:05 ALT 36 U/L (9-52) 12/21/16 17:05 Alkaline Phosphatase 72 U/L (38-126) 12/21/16 17:05 Total Protein 7.1 g/dL (6.3-8.2) 12/21/16 17:05 Albumin 3.8 g/dL (3.5-5.0) 12/21/16 17:05 Urine Color YELLOW 12/21/16 22:21 Urine Appearance SLIGHTLY-CLOUDY 12/21/16 22:21 Urine pH 5.0 (5.0-9.0) 12/21/16 22:21 Ur Specific [place] 1.006 12/21/16 22:21 Urine Protein 30 mg/dL (NEGATIVE) H 12/21/16 22:21 Urine Glucose (UA) NEGATIVE mg/dL (NEGATIVE) 12/21/16 22:21 Urine Ketones NEGATIVE mg/dL (NEGATIVE) 12/21/16 22:21 Urine Blood SMALL (NEGATIVE) H 12/21/16 22:21 Urine Nitrite NEGATIVE (NEGATIVE) 12/21/16 22:21 Urine Bilirubin NEGATIVE (NEGATIVE) 12/21/16 22:21 Urine Urobilinogen NEGATIVE mg/dL (<2.0) 12/21/16 22:21 Ur Leukocyte Esterase SMALL (NEGATIVE) H 12/21/16 22:21 Urine WBC (Auto) 2 /HPF 12/21/16 22:21 Urine RBC (Auto) 1 /HPF 12/21/16 22:21 Squamous Epi Cells Auto 1 /HPF 12/21/16 22:21 Urine Mucus (Auto) RARE /LPF 12/21/16 22:21 Urine Ascorbic Acid NEGATIVE (NEGATIVE) 12/21/16 22:21 Impressions: Chest X-Ray 12/21/16 16:11 IMPRESSION: NO SIGNIFICANT RADIOGRAPHIC FINDING IN THE CHEST. Renal Ultrasound 12/22/16 00:00 IMPRESSION: NORMAL RENAL AND BLADDER ULTRASOUND. Incidental renal cysts noted. Qualifiers PATEINT BEING DISCHARGED WITH ANY OF THE FOLLOWING DIAGNOSIS?: No Plan Discharge Plan: The patient is advised to follow with primary care provider within one week for hospital follow-up. Time Spent: Less than 30 Minutes
== END 2016-12-23 12:49 | disposition home or self-care (01) | DRG 641 ==
LOC: ER 15:57 → EH 23:48 → UNDOADMOB 23:48 → OBSVTOIN 12-22 05:10 → EH 12-22 05:10 → 4S 12-22 07:39
PROVIDERS: ADMIT Family Medicine; ATTEND Family Medicine
DX: E86.0 Dehydration (principal); K52.9 Noninfective gastroenteritis and colitis, unspecified; E83.42 Hypomagnesemia; E78.5 Hyperlipidemia, unspecified; E03.9 Hypothyroidism, unspecified; E11.9 Type 2 diabetes mellitus without complications; I10 Essential (primary) hypertension; M19.90 Unspecified osteoarthritis, unspecified site; R39.2 Extrarenal uremia
CPT/HCPCS: 36415; 71020; 76770; 80048; 80053; 81001; 82962; 83735; 85025; 87040; 87086; 93005; 93010; 96365; 99285; J1644; J3475; J7030

== ENCOUNTER → 2017-03-10 | Outpatient (CLI) | payer MEDICARE | LOC: OD 12:06 | PROVIDERS: ATTEND Urology | DX: K58.9 Irritable bowel syndrome, unspecified (principal); K59.00 Constipation, unspecified; I10 Essential (primary) hypertension; E13.9 Other specified diabetes mellitus without complications; E03.9 Hypothyroidism, unspecified | CPT/HCPCS: 74020 ==

== ENCOUNTER → 2017-11-01 | Outpatient (CLI) | payer MEDICARE ==
--- NOTE | 2017-11-01 12:27 | RADIOLOGY REPORT (SQ) ---
EXAM DESCRIPTION: KNEE BILATERAL 1-2 VIEWS COMPLETED DATE/TIME: 11/01/2017 11:43 am REASON FOR STUDY: YUDY KNEE PAIN M25.562 PAIN IN LEFT KNEE M25.561 PAIN IN RIGHT KNEE COMPARISON: None. NUMBER OF VIEWS: Five views. TECHNIQUE: AP and lateral standing bilateral knees. LIMITATIONS: None. FINDINGS: MINERALIZATION: Normal. RIGHT KNEE BONES: No acute fracture. No worrisome bone lesions. MEDIAL COMPARTMENT: No significant osteophytes. Minimal joint space narrowing No chondrocalcinosi s. LATERAL COMPARTMENT: No significant osteophytes. Minimal joint space narrowing No chondrocalcinos is. LEFT KNEE BONES: No acute fracture. No worrisome bone lesions. MEDIAL COMPARTMENT: No significant osteophytes. Minimal joint space narrowing No chondrocalcinosi s. LATERAL COMPARTMENT: No significant osteophytes. Minimal joint space narrowing No chondrocalcinos is. IMPRESSION: Minimal symmetrical degenerative narrowing of the knee joint compartments. Mild degener ative narrowing of the patellofemoral joints. No other abnormality identified. No significant findi ng to explain the patient's pre patella symptoms. TECHNICAL DOCUMENTATION: JOB ID: [id number] [employer]- All Rights Reserved
== END ==
LOC: OD 11:23
PROVIDERS: ATTEND Physician Assistant Medical
DX: M25.562 Pain in left knee (principal); M25.561 Pain in right knee; M17.0 Bilateral primary osteoarthritis of knee

== ENCOUNTER → 2017-11-24 | Outpatient (CLI) | payer MEDICARE ==
--- NOTE | 2017-11-24 14:52 | RADIOLOGY REPORT (SQ) ---
EXAM DESCRIPTION: MRI LT LOWER JOINT WITHOUT COMPLETED DATE/TIME: 11/24/2017 1:19 pm REASON FOR STUDY: PAIN IN L KNEE M25.562 PAIN IN LEFT KNEE COMPARISON: None. TECHNIQUE: Leftknee images acquired and stored on PACS. Multiplanar images include fat sensitive se quences as T1, water sensitive sequences as FST2 or STIR, cartilage sensitive sequences as FSPD, and gradient echo sequences. LIMITATIONS: None. FINDINGS: JOINT AND BURSAE: Joint effusion. BONE CORTEX AND MARROW: No alteration of signal to suggest marrow replacement. No worrisome bone lesi ons. No occult fracture. ACL: Intact. No degeneration or ganglion cyst. PCL: Intact. MCL: Intact. No periligamentous edema or fluid. LCL: Intact. No periligamentous edema or fluid. MEDIAL MENISCUS: Intact. LATERAL MENISCUS: Intact. MEDIAL COMPARTMENT: Cartilage thinning. LATERAL COMPARTMENT: Cartilage thinning. PATELLA: Thinning of the patellar and trochlear cartilage. Subchondral cyst and subchondral edema in the patella contiguous with a osteochondral defect medial to midline. Intact retinaculum. EXTENSOR MECHANISM: Intact. Quadriceps and patella tendons normal. SOFT TISSUES: Small Harman's cyst. OTHER: No other significant finding. IMPRESSION: 1. Grade 4 chondromalacia of the patella. 2. Joint effusion. 3. Small Ahrman's cyst. TECHNICAL DOCUMENTATION: JOB ID: [id number]- All Rights Reserved
== END ==
LOC: RAD 12:20
PROVIDERS: ATTEND Orthopaedic Surgery
DX: M25.562 Pain in left knee (principal); M22.42 Chondromalacia patellae, left knee; M25.462 Effusion, left knee; M71.22 Synovial cyst of popliteal space [Baker], left knee

== ENCOUNTER → 2018-12-12 | Outpatient (CLI) | payer MEDICARE ==
--- NOTE | 2018-12-12 08:55 | RADIOLOGY REPORT (SQ) ---
EXAM DESCRIPTION: MRI RT UPPER JOINT WITHOUT COMPLETED DATE/TIME: 12/12/2018 8:35 am REASON FOR STUDY: PAIN IN RIGHT SHOULDER (M25.511) M25.511 PAIN IN RIGHT SHOULDER COMPARISON: None. TECHNIQUE: Right shoulder images acquired and stored on PACS. Multiplanar imaging to include fat sen sitive sequences such as T1, water sensitive sequences such as FST2/STIR, cartilage sensitive sequenc es such as FSPD/gradient-echo sequences. LIMITATIONS: None. FINDINGS: BONE MARROW AND CORTEX: No worrisome bone lesions or marrow replacement. No occult fractur es. JOINT OR BURSAL EFFUSION: No significant glenohumeral joint effusion. Small amount of fluid in the s ubacromial/subdeltoid bursa on coronal image 12 GLENO-HUMERAL ARTICULATION: Normal articulation. No subluxation. No cystic change. No osteophytes or cartilage loss. ACROMION AND AC JOINT: Type 2 acromion with very bulky arthropathy at the joint. Cystic synovial ch anges protrude off the superior margin of the AC joint with moderate bony spurring inferiorly, narrow ing the subacromial space. These changes are best shown on coronal image 8 and sagittal image 11. ROTATOR CUFF AND INTERVAL: Diffuse tendinopathy with complex tear throughout supraspinatus and anteri or half infraspinatus tendons, best shown on sagittal image 9-15 and coronal images 9-13. No fatty a trophy of the supra or infraspinatus muscles No rotator interval tear. No rotator interval thickening to suggest adhesive capsulitis. LABRUM AND BICEPS LABRAL COMPLEX: Intact. No labral tear. Intra-articular long-head biceps tendon n ormal. Distal biceps in normal location in bicipital groove. REMAINDER OF LABRUM AND IGHL : No gross tear or paralabral cyst formation. Labral evaluation is less than optimal without joint distention. No thickening of IGHL to suggest adhesive capsulitis. PERIARTICULAR AND ADJACENT SOFT TISSUES: No masses or abnormal nodes. OTHER: No other significant finding. IMPRESSION: Bulky acromioclavicular joint hypertrophy with narrowing of the subacromial space. Dege nerative tear supraspinatus and anterior half infraspinatus tendons fluid in the subacromial/subdelto id bursa TECHNICAL DOCUMENTATION: JOB ID: [id number] [employer]- All Rights Reserved Reading location - IP/workstation name: [email or web address]
== END ==
LOC: RAD 07:42
PROVIDERS: ATTEND Orthopaedic Surgery
DX: M25.511 Pain in right shoulder (principal); M75.111 Incomplete rotator cuff tear or rupture of right shoulder, not specified as traumatic

== ENCOUNTER → 2018-12-22 | Outpatient (CLI) | payer MEDICARE ==
[2018-12-22 17:38] LABS: ABSOLUTE EOSINOPHILS # (AUTO) 0.1 10^3/uL (0.0-0.6); ABSOLUTE LYMPHOCYTES (AUTO) 2.1 10^3/uL (0.5-4.7); ABSOLUTE MONOCYTES (AUTO) 0.4 10^3/uL (0.1-1.4); ABSOLUTE NEUT (AUTO) 3.1 10^3/uL (1.7-8.2); BASOPHILS % (AUTO) 0.3 % (0-2); EOSINOPHILS % (AUTO) 1.5 % (0-6); HEMATOCRIT 37.9 % (36.0-47.0); HEMOGLOBIN 12.7 g/dL (12.0-15.5); LYMPHOCYTES % (AUTO) 36.9 % (13-45); MEAN CORPUSCULAR HEMOGLOBIN 30.9 pg (27.0-33.4); MEAN CORPUSCULAR HGB CONC 33.6 g/dL (32.0-36.0); MEAN CORPUSCULAR VOLUME 92 fl (80-97); MONOCYTES % (AUTO) 6.4 % (3-13); PLATELET COUNT 256 10^3/uL (150-450); RED BLOOD COUNT 4.12 10^6/uL (3.72-5.28); SEGMENTED NEUTROPHILS % (AUTO) 54.9 % (42-78); TOTAL CELLS COUNTED % (AUTO) 100 %; WHITE BLOOD COUNT 5.6 10^3/uL (4.0-10.5)
[2018-12-22 18:06] LABS: ALANINE AMINOTRANSFERASE 31 U/L (9-52); ALBUMIN 4.5 g/dL (3.5-5.0); ALKALINE PHOSPHATASE 66 U/L (38-126); ANION GAP 12 (5-19); ASPARTATE AMINO TRANSFERASE 28 U/L (14-36); BILIRUBIN,DIRECT 0.2 mg/dL (0.0-0.4); BILIRUBIN,TOTAL 0.3 mg/dL (0.2-1.3); BLOOD UREA NITROGEN 21 mg/dL (7-20); CALCIUM 9.8 mg/dL (8.4-10.2); CARBON DIOXIDE 27 mmol/L (22-30); CHLORIDE 100 mmol/L (98-107); GLUCOSE 138 mg/dL (75-110); POTASSIUM 4.1 mmol/L (3.6-5.0); SODIUM 138.9 mmol/L (137-145); TOTAL PROTEIN 7.1 g/dL (6.3-8.2)
--- NOTE | 2018-12-22 19:28 | EKG REPORT ---
SEVERITY:- ABNORMAL ECG - SINUS RHYTHM FIRST DEGREE AV BLOCK LEFT ANTERIOR FASCICULAR BLOCK LEFT VENTRICULAR HYPERTROPHY NONSPECIFIC ST-T CHANGES ANTEROSEPTAL LEADS : Confirmed by: Del Renner MD 22-Dec-2018 19:27:58
== END ==
LOC: OD 15:46
PROVIDERS: ATTEND Orthopaedic Surgery
DX: Z11.2 Encounter for screening for other bacterial diseases (principal); I10 Essential (primary) hypertension
CPT/HCPCS: 36415; 80053; 83036; 85025; 87070; 93005; 93010

== ENCOUNTER → 2019-12-06 | Day surgery (SDC) | payer MEDICARE ==
[~2019-12-06] MED LIST: LIDOCAINE 1% INJ-PF (10 MG/ML) 30 ML SDV ONE
--- NOTE | 2019-12-10 15:42 | WOMENS IMAGING REPORT ---
EXAM DESCRIPTION: U/S BREAST BX; RIGHT DIAGNOSTIC MAMMO W/CAD COMPLETED DATE/TIME: 12/06/2019 2:13 pm; 12/06/2019 2:35 pm REASON FOR STUDY: N63.10 UNSPECIFIED LUMP IN THE RIGHT BREAST, UNSPECIFIED QUADRANT; N63.10 S/P US R IGHT BREAST BX FOR CLIP PLACEMENT N63.10 UNSPECIFIED LUMP IN THE RIGHT BREAST, UNSPECIFIED MUSTAPHA COMPARISON: Multiple previous TECHNIQUE: The procedure was discussed with the patient and the patient agreed to proceed. The patient was scanned and the area of interest in the 8 o'clock position 10 cm from the nipple of the right breast was localized. This correlates with the area of concern on prior imaging studies. T his area was targeted for ultrasound-guided core biopsy. After sterile skin prep and 3.0 mL local lidocaine 1 % skin and deep tissue anesthesia, a 14 gauge co axial core biopsy needle was used to obtain several cores of tissue from the lesion. Under ultrasoun d guidance, a ribbon clip was placed in the areas sampled. There were no immediate post-procedure co mplications. MAMMOGRAM: Post-procedure two view mammogram was acquired in the digital mammogram suite. The clip wa s in the expected location. No significant hematoma. Pathology yields a diagnosis of invasive ductal carcinoma Pathology is concordant. LIMITATIONS: None. FINDINGS: Ultrasound guided breast biopsy as described above. POST PROCEDURE MAMMOGRAMS FOR MARKER PLACEMENT: Yes IMPRESSION: ULTRASOUND-GUIDED CORE BIOPSY OF THE RIGHT BREAST YIELDS A DIAGNOSIS OF INVASIVE DUCTAL CARCINOMA BI-RADS 6 KNOWN MALIGNANCY, APPROPRIATE ACTION SHOULD BE TAKEN COMMENT: COMMUNICATION: THIS REPORT WAS DISCUSSED DIRECTLY WITH THE PATIENT 12/10/2019 1530 HOURS. S HE UNDERSTANDS THIS IS A MALIGNANT DIAGNOSIS AND THAT SHE REQUIRES FURTHER THERAPY. Patient medication list reviewed: Yes- Quality ID# [id number]:Eligible professional attests to documenting i n the medical record they obtained, updated, or reviewed the patient's current medications. TECHNICAL DOCUMENTATION: JOB ID: [id number] 2010 [employer]- All Rights Reserved Reading location - IP/workstation name: [email or web address]
== END ==
LOC: WI 12:40
PROVIDERS: ATTEND Internal Medicine Geriatric Medicine
DX: C50.911 Malignant neoplasm of unspecified site of right female breast (principal)
CPT/HCPCS: 88342 ×2; 88341 ×2; 88305 ×2; 19083; 77065; J3490

== ENCOUNTER 2019-12-10 06:43 | Day surgery (SDC) | payer MEDICARE ==
[2019-12-10] MEDS ORDERED: PROPOFOL INJ 200 MG/20 ML VIAL IV ONE (07:40)
[2019-12-10 10:13] VITALS: BP 144/68
--- NOTE | 2019-12-10 12:55 | Operative Report ---
Operative Report DATE OF SURGERY: 12/10/19 Operative Report: Risk, benefits and alternatives of the procedure including the risk of bleeding, perforation requiring surgery are discussed with the patient in detail and informed consent has been obtained. Propofol medication is administered. Timeout was called. Rectal examination is performed which did not reveal any masses, tears or fissures. Colonoscopy is completed to the segment with evaluation of all of the necessary segments. Retroflexion maneuvers performed. PREOPERATIVE DIAGNOSIS: Personal history of polyp POSTOPERATIVE DIAGNOSIS: Right-sided colon inflammation status post biopsy. Internal hemorrhoids OPERATION: Colonoscopy with biopsy SURGEON: HILARIO SOTO ANESTHESIA: LMAC TISSUE REMOVED OR ALTERED: As noted above. COMPLICATIONS: None. ESTIMATED BLOOD LOSS: None. INTRAOPERATIVE FINDINGS: As noted above. PROCEDURE: Patient tolerated the procedure well. No immediate postprocedure complications are noted. Patient is discharged in good condition. Discharge date 12/10/2019. Discharge diet: Regular. Discharge activity: Regular. 2 to 3-week follow-up to discuss findings. Patient is instructed to call the office or proceed to the emergency room should there be any further problems or questions. Consider 5-year surveillance colonoscopy.
== END 2019-12-10 09:58 | disposition home or self-care (01) ==
LOC: END 06:43
PROVIDERS: ATTEND Internal Medicine Gastroenterology
DX: Z12.11 Encounter for screening for malignant neoplasm of colon (principal); K52.9 Noninfective gastroenteritis and colitis, unspecified; K64.8 Other hemorrhoids; Z86.010 Personal history of colon polyps; Z79.82 Long term (current) use of aspirin; Z79.899 Other long term (current) drug therapy; Z87.891 Personal history of nicotine dependence; I10 Essential (primary) hypertension; E11.9 Type 2 diabetes mellitus without complications; E07.9 Disorder of thyroid, unspecified; G47.33 Obstructive sleep apnea (adult) (pediatric)
CPT/HCPCS: 45380; 82962; 88305 ×2; 00811; J2704; 811

== ENCOUNTER 2020-01-09 06:56 | Day surgery (SDC) | payer MEDICARE ==
[2020-01-02 09:48] LABS: HEMATOCRIT 36.4 % (36.0-47.0); MEAN CORPUSCULAR VOLUME 91 fl (80-97); PLATELET COUNT 229 10^3/uL (150-450); RED BLOOD COUNT 4.01 10^6/uL (3.72-5.28); RED CELL DISTRIBUTION WIDTH 14.6 % (11.5-14.0); WHITE BLOOD COUNT 4.3 10^3/uL (4.0-10.5)
[2020-01-02 10:12] LABS: ANION GAP 14 (5-19); BLOOD UREA NITROGEN 18 mg/dL (7-20); CALCIUM 9.2 mg/dL (8.4-10.2); CARBON DIOXIDE 27 mmol/L (22-30); CHLORIDE 99 mmol/L (98-107); GLUCOSE 161 mg/dL (75-110); POTASSIUM 3.5 mmol/L (3.6-5.0)
--- NOTE | 2020-01-02 13:22 | EKG REPORT ---
SEVERITY:- ABNORMAL ECG - SINUS RHYTHM FIRST DEGREE AV BLOCK LEFT ANTERIOR FASCICULAR BLOCK LEFT VENTRICULAR HYPERTROPHY : Confirmed by: Del Renner MD 02-Jan-2020 13:21:36
[~2020-01-09 06:56] MED LIST changes: +CEFAZOLIN 1 GM/D5W RTU 1 GM/50 ML RTUPB IV PRN; +LACTATED RINGERS 1000 ML IV PRN; +LIDOCAINE 0.5% INJ-PF (5 MG/ML) 50 ML SDV SUBCUT PRN; -LIDOCAINE 1% INJ-PF (10 MG/ML) 30 ML SDV ONE
[2020-01-09] MEDS ORDERED: LIDOCAINE 4% CREAM 5 GM TUBE ONE (07:31)
[2020-01-09] MEDS ORDERED: CEFAZOLIN 1 GM/D5W RTU 1 GM/50 ML RTUPB IV ONE (08:24)
--- NOTE | 2020-01-09 10:07 | RADIOLOGY REPORT (SQ) ---
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 RADIONUCLIDE AND DOSE: 613 microcuries TC-99m [employer]manocept - [employer]. The route of agent administration: Subcutaneous in the skin. TECHNIQUE: The skin of the right breast was prepped in sterile fashion. The radiopharmaceutical was administered in equally divided doses in the periareolar breast. LIMITATIONS: None. FINDINGS: Images demonstrate activity at the injection site. IMPRESSION: ADMINISTRATION OF RADIOPHARMACEUTICAL FOR SENTINEL LYMPH NODE EVALUATION. TECHNICAL DOCUMENTATION: JOB ID: [id number] 2010 [email or web address]- All Rights Reserved Reading location - IP/workstation name: [email or web address]
[2020-01-09] MEDS ORDERED: SUCCINYLCHOLINE CHLORIDE INJ 200 MG/10 ML VIAL ONE (10:34)
[2020-01-09] MEDS ORDERED: ONDANSETRON HCL INJ/PF 4 MG/2 ML SDV ONE (12:26)
[2020-01-09] MEDS ORDERED: PROPOFOL INJ 200 MG/20 ML VIAL IV ONE (12:26)
[2020-01-09] MEDS ORDERED: MORPHINE SULFATE 10 MG/ML INJ ONE (12:26)
[2020-01-09] MEDS ORDERED: DEXAMETHASONE SOD PHOSPHATE INJ 4 MG/1 ML VIAL ONE (12:26)
[2020-01-09] MEDS ORDERED: FENTANYL CITRATE INJ/PF 100 MCG/2 ML AMPUL ONE (12:26)
[2020-01-09] MEDS ORDERED: MIDAZOLAM 2 MG/2 ML INJ ONE (12:26)
[2020-01-09] MEDS ORDERED: METHYLENE BLUE 50 MG/10 ML AMPULE ONE (13:20)
[2020-01-09] MEDS: LIDOCAINE 1%/EPINEPHRINE INJ 20 ML VIAL ONE ×2 (13:20→14:11)
[2020-01-09] MEDS ORDERED: MEPERIDINE HCL/PF INJ 25 MG/1 ML DISP.SYRIN IV PRN (14:13)
[2020-01-09] MEDS ORDERED: PROMETHAZINE HCL INJ 25 MG/1 ML VIAL IV PRN ×2 (14:13)
[2020-01-09] MEDS ORDERED: DIPHENHYDRAMINE HCL 50 MG/ML VIAL IV PRN (14:13)
[2020-01-09] MEDS ORDERED: FENTANYL CITRATE INJ/PF 100 MCG/2 ML AMPUL IV PRN ×3 (14:13)
[2020-01-09] MEDS ORDERED: MORPHINE SULFATE 10 MG/ML INJ IV PRN (14:13)
[2020-01-09] MEDS ORDERED: OXYCODONE-ACETAMINOPHEN 5-325 MG TABLET PO PRN (14:34)
--- NOTE | 2020-01-09 14:34 | Discharge Summary ---
Discharge Summary (SDC) - Discharge Final Diagnosis: Right breast cancer Date of Surgery: 01/09/20 Discharge Date: 01/09/20 Condition: Good Treatment or Instructions: [facility] [address] [place] [id number] Care Instructions Following Your Lumpectomy Activities: Resume normal activities when you feel comfortable. It is best to remain as active as possible to speed your recovery. It is common to experience some fatigue after surgery and you may find that short naps are helpful. Avoid strenuous activity such as weight lifting, tennis, etc at your surgical site for two weeks. Perform gentle arm exercises daily and do not favor your operative arm to due increased risk of mobility issues postoperatively. No driving for 7 days after surgery. Do not drive if you are taking pain medication other than Tylenol or Ibuprofen. No swimming, tub baths or soaking in a hot tub for 4 weeks. There are no dietary restrictions. Do not smoke as this impairs wound healing. Surgical Site care: You may shower 24 hours after surgery to include washing the wound with soap and water using your hands. Do not scrub the incision. Pat the area dry with a towel. You do not need to recover the wound although some patients find that they feel more comfortable using a light dressing for a few days to absorb any minimal drainage which may occur. Many patients also find that keeping a dressing around the drain exit site is helpful to absorb any drainage which may leak around the tubing. If you use a dressing in this manner change it at least every day. Do not use heating pad or apply an ice pack to the operative site. You may apply deodorant if you are careful to avoid getting it on the wound itself. Empty the bulbs attached to the drain every 12 hours and measure the fluid output separately from each drain. Please also strip each drain each time you empty it to prevent clogging. Keep a record of the output and bring this record with you each time you come to the office for postoperative care. A drain is ready to be removed when its output is 30 mL per 24 hours per drain for 2 consecutive days. Please call the office to inform our staff that you need to come in for drain removal. Medications: Take Motrin (ibuprofen) 600 mg to 800 mg every 8 hours around the clock. You may taper this medication as you experience less pain. Take narcotic pain control such as Tylenol #3 or Percocet one to tablets every six hours as needed for breakthrough pain. Do not take over the counter Tylenol if you are taking either Tylenol #3 or Percocet. Again, you cannot drive while taking narcotic pain medication. Resume all of your normal prescription medications after your surgery unless instructed otherwise. You may experience constipation after surgery while taking pain medications. If using a narcotic on a regular basis, take a stool softener such as Colace twice a day. It is helpful to stay hydrated by drinking lots of fluids. Walking is also helpful and is good exercise after surgery. If you need extra help, use Milk of Magnesia according to the directions on the package. Follow-up: Call our office at to make a follow-up appointment in 10-14 days. Your doctor will call to discuss the pathology report with you as soon as it is available. Concerns: If you had a sentinel lymph node biopsy with your mastectomy, your urine may have a greenish discoloration. This is normal and will resolve as the blue dye slowly leaves your system. If you notice significant leakage around the drains, this is not normal. The drains may be clogged. Please call our office to come in immediately for the drains to be checked. Some bruising may occur and will go away over time. If you have a fever of 101.5 or greater, chills, redness at the incision site, excessive drainage from your wound or severe pain not relieved by pain medication, call your doctor. A physician is available 24 hours a day 7 days a week in addition to regular office hours. If problems arise after normal office hours please call the hospital at . Please call if you have any questions or concerns. Prescriptions: Ketorolac Tromethamine [Toradol 10 mg Tablet] 10 mg PO Q6HP PRN #20 tablet PRN Reason: Referrals: TAMARA BASSETT MD [Primary Care Provider] - Discharge Diet: As Tolerated Report the Following to Your Physician Immediately: Increase in Pain, Fever over 101 Degrees, Unusual Bleeding, Redness, Swelling, Warmth, Increased Soreness, Drainage-Foul Smelling
--- NOTE | 2020-01-09 14:40 | Operative Report ---
Operative Report DATE OF SURGERY: 01/09/20 PREOPERATIVE DIAGNOSIS: Invasive ductal carcinoma right breast, ER AK positive HER-2 negative POSTOPERATIVE DIAGNOSIS: Same OPERATION: 1. Ultrasound directed right breast lumpectomy with closure over drain. 2. Interpretation of intraoperative specimen radiograph. 3. Right axillary sentinel lymph node biopsy x2 SURGEON: LONDON GHOSH 1ST STEM MAKER: MANA ENGLISH ANESTHESIA: GA TISSUE REMOVED OR ALTERED: Right breast lumpectomy specimen; sentinel lymph nodes right axilla x2 COMPLICATIONS: None ESTIMATED BLOOD LOSS: Scant INTRAOPERATIVE FINDINGS: See below PROCEDURE: The patient was seen in the preop holding area the right axilla was marked. Bedside neoprobe demonstrated increased uptake in the right axilla. The patient was taken to the main operating room, placed supine position, intubated, right arm abducted. The breast was examined. We prepped the surface of the right breast, 11 o'clock position, with alcohol, then injected 2 and half cc of methylene blue diluted. This was injected into the dermal space. The right breast was marked. We now massaged the right breast, the right breast and right axilla were prepped and draped sterile fashion Surgical plan and surgical timeout were conducted. We proceeded with right breast lumpectomy. Sonography was used to localize the tumor which is approximately 6 cm from the nipple, 8 o'clock position right breast. The skin was anesthetized with 1% plain lidocaine. Ultrasound revealed a fully circumscribed mass consistent with malignancy. The clip marker could not be appreciated. A 5 cm elliptical incision was made, in a curvilinear fash ion from approximately 9:00 to 7 o'clock position right breast. Using ultrasound real-time as a guide, a lumpectomy specimen was removed from the right breast to encompass the target lesion. The final specimen was approximately 6 cm in diameter by 8 cm. It was removed from the right breast, it was marked with a long suture in the lateral position short suture in the superior position. The specimen was then placed on a Angel dish and put in the portable radiograph imaging machine and was imaged. This revealed the clip marker in the center of the tumor. The specimen was then sent to pathology where it was analyzed by Bea Boyle, and Dr. Ghosh. The specimen was inked, and transected vertically. The consensus amongst the pathologists was that the tumor was well within the surgical margins. We returned to the patient, proceeded with sentinel lymph node biopsy. The right axilla was scanned with the neoprobe there is an area of increased uptake in the high axilla. Skin was anesthetized 1% plain lidocaine. A 2 and half centimeter incision was made in the right axilla. 2 sentinel lymph nodes were harvested. The first 1 was blue hot with an in vivo count of 1757. The ex vivo count was 3645. Second sentinel lymph node was identified, technically a cluster of 2-3 lymph nodes which also was hot and blue with an in vivo count of 2438, and an ex vivo count of 2391. Background counts were negligible. We felt that the sentinel lymph node biopsy portion of the operation was complete. We returned to the right breast, and check for bleeding there was none. Sponge and counts are correct. A large Reyes drain was placed to the inframammary fold, trimmed to the appropriate length, secured to the skin with 2-0 Prolene suture, and the lumpectomy cavity closed with 3-0 and 2-0 Vicryl suture. The skin was closed with Dermabond glue. The right axillary incision was closed with 2-0 Vicryl and Dermabond glue. Patient tolerated procedure well, extubated, taken recovery in stable condition. The physician office clerk assistant, Ms. Ashraf, provided assistance during this case by: retracting tissue, instillation of local anesthesia and closure of skin incisions.
[2020-01-09 18:35] VITALS: BP 147/89
--- NOTE | 2020-01-14 17:07 | RADIOLOGY REPORT (SQ) ---
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 TECHNIQUE: Specimen radiograph from breast procedure performed in the operating room. LIMITATIONS: None. FINDINGS: Specimen radiograph from breast procedure performed in the operating room. Please see procedure note for details and final pathology. IMPRESSION: Specimen radiograph. TECHNICAL DOCUMENTATION: JOB ID: [id number] Reading location - IP/workstation name: [email or web address]
== END 2020-01-09 16:45 | disposition home or self-care (01) ==
LOC: OROUT 06:56
PROVIDERS: ATTEND Surgery
DX: C50.511 Malignant neoplasm of lower-outer quadrant of right female breast (principal); Z17.0 Estrogen receptor positive status [ER+]; C77.3 Secondary and unspecified malignant neoplasm of axilla and upper limb lymph nodes; Z79.899 Other long term (current) drug therapy; E11.9 Type 2 diabetes mellitus without complications; E05.90 Thyrotoxicosis, unspecified without thyrotoxic crisis or storm; I10 Essential (primary) hypertension; E55.9 Vitamin D deficiency, unspecified; Z79.82 Long term (current) use of aspirin
CPT/HCPCS: 93005; 36415 ×2; 82962; 84132; 85027; 80048; 88307 ×2; 78195; 93010; 01610; 76098; 19301; 38500; L8000 ×2; A9520; J2250; J0690; J1100; J3010; J3490 ×2; J2270; J0330; J2405; J2704; Q9968; 1610

== ENCOUNTER 2020-01-30 05:32 | Day surgery (SDC) | payer MEDICARE ==
[2020-01-28 09:59] LABS: HEMATOCRIT 34.2 % (36.0-47.0); HEMOGLOBIN 11.7 g/dL (12.0-15.5); MEAN CORPUSCULAR HGB CONC 34.2 g/dL (32.0-36.0); MEAN CORPUSCULAR VOLUME 91 fl (80-97); PLATELET COUNT 241 10^3/uL (150-450); RED BLOOD COUNT 3.77 10^6/uL (3.72-5.28); RED CELL DISTRIBUTION WIDTH 14.5 % (11.5-14.0); WHITE BLOOD COUNT 4.5 10^3/uL (4.0-10.5)
[2020-01-28 10:25] LABS: ANION GAP 13 (5-19); BLOOD UREA NITROGEN 20 mg/dL (7-20); CALCIUM 9.4 mg/dL (8.4-10.2); CARBON DIOXIDE 27 mmol/L (22-30); CHLORIDE 95 mmol/L (98-107); GLUCOSE 122 mg/dL (75-110); POTASSIUM 3.8 mmol/L (3.6-5.0)
[~2020-01-30 05:32] MED LIST changes: +CEFAZOLIN 1 GM/D5W RTU 1 GM/50 ML RTUPB IV ONE
[2020-01-30 06:27] LABS: POTASSIUM 4.2 mmol/L (3.6-5.0)
[2020-01-30] MEDS ORDERED: HYDROMORPHONE HCL INJ/PF 2 MG/ML AMPULE ONE (06:38)
[2020-01-30] MEDS ORDERED: FENTANYL CITRATE INJ/PF 100 MCG/2 ML AMPUL ONE (06:39)
[2020-01-30] MEDS ORDERED: ONDANSETRON HCL INJ/PF 4 MG/2 ML SDV ONE (06:39)
[2020-01-30] MEDS ORDERED: DEXAMETHASONE SOD PHOSPHATE INJ 4 MG/1 ML VIAL ONE ×2 (06:39→07:40)
[2020-01-30] MEDS ORDERED: MIDAZOLAM 2 MG/2 ML INJ ONE (06:39)
[2020-01-30] MEDS ORDERED: PROPOFOL INJ 200 MG/20 ML VIAL IV ONE (06:39)
[2020-01-30] MEDS ORDERED: CARVEDILOL 6.25 MG TABLET ONE (06:43)
[2020-01-30] MEDS ORDERED: LIDOCAINE 1%/EPINEPHRINE INJ 20 ML VIAL ONE (07:15)
[2020-01-30] MEDS ORDERED: MICROFIBRILLAR COLLAGEN 1 GM PACK ONE (07:15)
[2020-01-30] MEDS ORDERED: ROCURONIUM BROMIDE INJ 50 MG/5 ML VIAL IV ONE (07:40)
[2020-01-30] MEDS ORDERED: LIDOCAINE 2% INJ-PF (20 MG/ML) 2 ML AMPUL ONE (07:40)
[2020-01-30] MEDS ORDERED: PHENYLEPHRINE HCL INJ/PF 10 MG/1 ML SDV ONE (07:40)
[2020-01-30] MEDS ORDERED: SUCCINYLCHOLINE CHLORIDE INJ 200 MG/10 ML VIAL ONE (07:40)
[2020-01-30] MEDS ORDERED: EPHEDRINE SULFATE INJ 50 MG/1 ML AMPULE ONE (08:53)
--- NOTE | 2020-01-30 09:10 | RADIOLOGY REPORT (SQ) ---
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 TECHNIQUE: Intra-operative images acquired during surgical procedure to evaluate progress. NUMBER OF IMAGES: 2 images LIMITATIONS: None. FINDINGS: Limited intraoperative fluoroscopic images demonstrate evidence of left internal jugular b ased chest port placement. Please see operative report for detailed description. Endotracheal tube tip overlies right mainstem bronchus. IMPRESSION: IMAGE(S) OBTAINED DURING PROCEDURE. COMMENT: Quality ID [id number]: Final reports for procedures using fluoroscopy that document radiation exp osure indices, or exposure time and number of fluorographic images (if radiation exposure indices are not available) Please consult full operative report of the attending physician for description of the procedure. TECHNICAL DOCUMENTATION: JOB ID: [id number] 2010 [employer]- All Rights Reserved COMPARISON: 12/21/2016 Reading location - IP/workstation name: [email or web address]
[2020-01-30] MEDS ORDERED: PROMETHAZINE HCL INJ 25 MG/1 ML VIAL IV PRN (09:32)
[2020-01-30] MEDS ORDERED: FENTANYL CITRATE INJ/PF 100 MCG/2 ML AMPUL IV PRN ×3 (09:32)
[2020-01-30] MEDS ORDERED: MEPERIDINE HCL/PF INJ 25 MG/1 ML DISP.SYRIN IV PRN (09:32)
[2020-01-30] MEDS ORDERED: MORPHINE SULFATE 10 MG/ML INJ IV PRN (09:32)
[2020-01-30] MEDS ORDERED: DIPHENHYDRAMINE HCL 50 MG/ML VIAL IV PRN (09:32)
--- NOTE | 2020-01-30 11:11 | Operative Report ---
Operative Report DATE OF SURGERY: 01/30/20 PREOPERATIVE DIAGNOSIS: 1. Invasive ductal carcinoma right breast. 2. Post r ight breast lumpectomy, sentinel node biopsy with positive lumpectomy margin, and positive sentinel lymph node biopsy x2 POSTOPERATIVE DIAGNOSIS: Same OPERATION: 1. Placement of left subclavian Engfsh-x-Nsri catheter, single- lumen, with catheter inserted into the left internal jugular vein. 2. Use of ultrasound guidance for catheter insertion. 3. Use of intraoperative fluoroscopy. 4. Completion right modified radical mastectomy. 5. Drainage of right chest wall SURGEON: LONDON PAGE PAPER COATING MACHINE OPERATOR: MANA ENGLISH ANESTHESIA: GA TISSUE REMOVED OR ALTERED: Right breast and axillary contents with fragments COMPLICATIONS: None ESTIMATED BLOOD LOSS: 25 cc INTRAOPERATIVE FINDINGS: See below PROCEDURE: Patient was seen in the preop holding area with the right chest wall was marked for completion mastectomy in the left neck for portacatheter placement. The patient was taken to the main operating room where general anesthesia was induced. The arms were tucked, left neck and chest wall prepped and draped in sterile fashion. Surgical plan and surgical timeout were conducted. Using ultrasound real-time as a guide, skin was anesthetized with 1% plain lidocaine, and a micro needle and wire were threaded into the left internal jugular vein without difficulty. A suitable site for port placement was chosen in the left subclavian position. The skin was anesthetized with 1% plain lidocaine, 3 cm incision was made with a #15 blade, and a port pocket developed large enough to accommodate a single- chamber [id number] was created using blunt and electrocautery dissection. The catheter was then trimmed to the appropriate length, approximately 26 cm, tunneled between the 2 incisions, attached to the port with the plastic ring. The port was tucked into the left subclavian pocket. Under fluoroscopic guidance, real-time, the microwire was switched over to a conventional 0.030 inch guidewire using the micro sheath introducer. Then under fluoroscopic guidance, an 8 Libyan dilator and sheath were threaded over the conventional guidewire, dilator and guidewire removed, catheter fragment inserted into the strip away sheath, sheath removed, and catheter found to be in the proximal superior vena cava. Images were taken. Furthermore there was no kinking of the catheter at the neck. The catheter was aspirated and flushed with heparinized saline and function satisfactorily. Sponge and needle counts are correct. All wounds closed with 3-0 Vicryl, benzoin and Steri-Strips. The patient was undraped, then the right arm abducted, right axilla and right breast prepped and draped separately in a sterile fashion. The findings are significant for 2 previous operative scars, one in the outer lower aspect of the right breast consistent with lumpectomy, and a right axillary scar consistent with previous sentinel node biopsy. Markings were made on the skin for a generous elliptical incision for the planned mastectomy. The superior wesley was then incised with a #10 blade. Superior skin flap was raised all the way to the subclavian area superiorly, and the parasternal tissue medially. The L of Wilson was also taken off of the upper lateral aspect of the pectoralis major muscle The inferior marking was now incised with a #10 blade, and inferior skin flap was raised taken the level of dissection all the way to the inferior border of the pectoralis muscle with the serratus anterior muscle. Of note there was a fair amount of scar tissue just below the lumpectomy site as we raised the inferior skin flap. There was no hematoma seroma or visible evidence of tumor. [place] like we got beyond the lumpectomy field. The breast was now taken off of the chest wall uneventfully including the pectoralis major muscle. Bookwalter retractor system was established. The tail of Wilson in the inferior lateral aspect of the right breast was taken off of the lateral chest wall. We now gained exposure to the axilla. The tail of Wilson superiorly was taken down to the level of the origination of the pectoralis muscle. We now swept the the axillary contents off of the axillary sheath. We now completed a formal right axillary dissection. Of note there was some scar tissue on the lateral aspect of the skin flap where the previous sentinel node biopsy had taken place. We now meticulously dissected all of the fat and axillary contents from the anterior aspect of the axillary vein, up underneath the pectoralis major muscle, up underneath the pectoralis minor muscle consistent with level 2 lymph node location. Fatty contents were swept off of the lateral chest wall. The nerve to the serratus anterior muscle was visualized and preserved throughout the dissection. When pinched, the muscle twitched appropriately. Of note there were at least 2, possibly 3 intercostal brachial nerves, somewhat unusual, but these were taken in the axillary specimen. The dissection was taken off of the major branches of the axillary vein, including the thoracodorsal complex. The nerve to the latissimus dorsi was pinched and the respective muscle twitched. The nerve was protected that dissection. Axillary fat was swept off of the latissimus dorsi muscle without difficulty. There was no gross metastatic disease of visible. The right breast, tail of Wilson and axillary contents were taken in toto off the field, and labeled with a long suture in the lateral position short suture in the superior position placed in a bucket. Spent a fair amount of time clearing Mall clusters of fibrofatty and lymphatic tissue from up underneath the pectoralis minor muscle. Bleeding was minimal. The specimen was also placed in the pocket. We placed 2 large Reyes drains, 15 Libyan and the inferior skin flap and secured in skin with 2-0 Prolene suture. At this time Dr. Ghosh took the right breast to pathology where Dr. Thorpe inked the specimen, sliced it vertically, and observed the previous lumpectomy site. The inferior skin flap was felt to be approximately 1 cm from the lumpectomy site. Therefore no further tissue was recommended for removal. We reinspected the right axilla. A intermediate sized piece of Gelfoam was placed in the high axilla. Sponge and needle counts are correct. Wound closed with 2-0 Vicryl, running, and skin glue. Patient tolerated procedure well, extubated, taken recovery in stable condition. The physician assistant chief of police, Ms. Ashraf, provided assistance during this case by: Assisting with retracting tissue, instillation of local anesthesia and closure of skin incisions.
[2020-01-30] MEDS: DEXTROSE 5%-LACTATED RINGERS 1,000 ML IV PRN (13:16)
[2020-01-30] MEDS: ACETAMINOPHEN INJ/PF 1000 MG/100 ML SDV IV SCH ×2 (13:22→17:00)
[2020-01-30] MEDS ORDERED: ONDANSETRON HCL INJ/PF 4 MG/2 ML SDV IV PRN (13:48)
[2020-01-30] MEDS: OXYCODONE-ACETAMINOPHEN 5-325 MG TABLET PO PRN (14:35)
[2020-01-31] MEDS: ACETAMINOPHEN INJ/PF 1000 MG/100 ML SDV IV SCH ×3 (00:24→11:11)
[2020-01-31] MEDS: DEXTROSE 5%-LACTATED RINGERS 1,000 ML IV PRN (03:59)
[2020-01-31] MEDS: OXYCODONE-ACETAMINOPHEN 5-325 MG TABLET PO PRN ×2 (04:05→08:48)
[2020-01-31 13:55] VITALS: BP 132/68
--- NOTE | 2020-02-03 07:02 | PDOC DISCHARGE SUMMARY ---
General - Admit/Disc Date/PCP Admission Date/Primary Care Provider: TAMARA BASSETT Discharge Date: 01/31/20 - Discharge Diagnosis Final Diagnosis: Invasive ductal carcinoma right breast - Assessment Summary: The patient is a 74-year-old Afro-Citizen [place] female who previously underwent right breast lumpectomy, sentinel node biopsy for invasive ductal carcinoma. Her final path report showed positive lumpectomy margin, and 2 sentinel lymph nodes replaced with malignancy. Patient was brought back to [facility] through same-day surgery for completion right mastectomy. The procedure was performed by Dr. Ghosh on January 29. Tolerated procedure well. Postoperative day 1 she was discharged home from the floor, after instructions provided for drain management, and range of motion of the right arm. She was discharged home to follow-up with Dr. Ghosh [facility] in 1 week. She was given a prescription for narcotics. - Additional Information Resuscitation Status: Full Code Discharge Diet: As Tolerated Discharge Activity: No Lifting Over 10 Pounds, No Lifting/Push/Pulling Referrals: [facility] [Provider Group] - 02/07/20 1:30 pm Prescriptions: Oxycodone HCl/Acetaminophen [Percocet 5-325 mg Tablet] 1 tab PO Q6 #20 tab Home Medications: Aspirin [Ecotrin] 81 mg PO DAILY 04/01/16 Carvedilol [Coreg] 25 mg PO Q12 04/01/16 Diltiazem HCl [Diltiazem 24Hr ER (Cd)] 360 mg PO DAILY 04/01/16 Levothyroxine Sodium [Synthroid 0.075 mg Tablet] 0.075 mg PO DAILY 04/01/16 Linagliptin/Metformin HCl [Jentadueto 2.5 mg-1000 mg Tab] 1 tab PO BID 04/01/16 Lovastatin [Altoprev] 20 mg PO QHS 04/01/16 Multivitamin [Multivitamins] 1 each PO DAILY 04/01/16 Benazepril HCl 40 mg PO DAILY 01/02/20 Cholecalciferol (Vitamin D3) [Vitamin D3 1000 Unit Tablet] 1,000 unit PO DAILY 01/02/20 Fluticasone Propionate 50 mcg NASL DAILY 01/02/20 Hydrochlorothiazide [Hydrodiuril 25 mg Tablet] 25 mg PO DAILY 01/02/20 Loratadine 10 mg PO DAILY 01/02/20 Vitamin C/Biotin [Hair, Skin and Nails Gummies] 2 tab PO DAILY 01/02/20 Ketorolac Tromethamine [Toradol 10 mg Tablet] 10 mg PO Q6HP PRN 01/30/20 Oxycodone HCl/Acetaminophen [Percocet 5-325 mg Tablet] 1 tab PO Q6 #20 tab 01/31/20 History of Present Illiness History of Present Illness: ZELDA BAZZI is a 74 year old female Physical Exam Vital Signs: Temp Pulse Resp BP Pulse Ox 98.3 F 83 18 132/68 H 100 01/31/20 13:52 01/31/20 13:52 01/31/20 13:52 01/31/20 13:52 01/31/20 13:52 Intake & Output 02/01/20 02/02/20 02/03/20 06:59 06:59 06:59 Intake Total 1000 Output Total 200 Balance 800 Results Laboratory Results: WBC 4.5 10^3/uL (4.0-10.5) 01/28/20 08:51 RBC 3.77 10^6/uL (3.72-5.28) 01/28/20 08:51 Hgb 11.7 g/dL (12.0-15.5) L 01/28/20 08:51 Hct 34.2 % (36.0-47.0) L 01/28/20 08:51 MCV 91 fl (80-97) 01/28/20 08:51 MCH 31.0 pg (27.0-33.4) 01/28/20 08:51 MCHC 34.2 g/dL (32.0-36.0) 01/28/20 08:51 RDW 14.5 % (11.5-14.0) H 01/28/20 08:51 Plt Count 241 10^3/uL (150-450) 01/28/20 08:51 Sodium 134.5 mmol/L (137-145) L 01/28/20 08:51 Potassium 4.2 mmol/L (3.6-5.0) 01/30/20 05:57 Chloride 95 mmol/L (98-107) L 01/28/20 08:51 Carbon Dioxide 27 mmol/L (22-30) 01/28/20 08:51 Anion Gap 13 (5-19) 01/28/20 08:51 BUN 20 mg/dL (7-20) 01/28/20 08:51 Creatinine 1.19 mg/dL (0.52-1.25) 01/28/20 08:51 Est GFR ( Amer) 54 (>60) L 01/28/20 08:51 Est GFR (MDRD) Non-Af 44 (>60) L 01/28/20 08:51 Glucose 122 mg/dL (75-110) H 01/30/20 05:57 POC Glucose 172 mg/dL (70-110) H 01/30/20 11:15 Calcium 9.4 mg/dL (8.4-10.2) 01/28/20 08:51 Impressions: Guidance Fluoroscopy 01/30/20 00:00 IMPRESSION: IMAGE(S) OBTAINED DURING PROCEDURE.
== END 2020-01-31 15:19 | disposition home or self-care (01) ==
LOC: OROUT 05:32 → 4S 11:40 → OROUT 01-31 15:19
PROVIDERS: ATTEND Surgery
DX: C50.911 Malignant neoplasm of unspecified site of right female breast (principal); E55.9 Vitamin D deficiency, unspecified; E05.90 Thyrotoxicosis, unspecified without thyrotoxic crisis or storm; M19.90 Unspecified osteoarthritis, unspecified site; E11.9 Type 2 diabetes mellitus without complications; E03.9 Hypothyroidism, unspecified; I10 Essential (primary) hypertension; Z87.891 Personal history of nicotine dependence; Z79.82 Long term (current) use of aspirin; Z79.899 Other long term (current) drug therapy; Z79.84 Long term (current) use of oral hypoglycemic drugs
CPT/HCPCS: 36415 ×2; 82962; 82947; 84132; 85027; 80048; 88309 ×2; 88329; 77001; 94799; 00404; 36561; 19307; C1752; C1788; J2250; A9270 ×3; J0690; J3490 ×4; J1100; J1170; J2370; J0330; J2405; J7121 ×2; J2704; J0131 ×2; 404; J1642; J3010

== ENCOUNTER → 2020-02-06 | Outpatient (CLI) | payer MEDICARE ==
--- NOTE | 2020-02-06 09:38 | RADIOLOGY REPORT (SQ) ---
EXAM DESCRIPTION: CT CHEST WITH; CT ABD/PELVIS WITH IV ONLY IMAGES COMPLETED DATE/TIME: 02/06/2020 9:02 am REASON FOR STUDY: BREAST CA (C50.311) C50.311 MALIG NEOPLM OF LOWER-INNER QUADRANT OF RIGHT FEMALE CONTRAST TYPE AND DOSE: contrast/concentration: Isovue 350.00 mg/ml; Total Contrast Delivered: 82.0 ml; Total Saline Delivered: 68.0 ml RENAL FUNCTION: Not available at time of dictation. COMPARISON: None. TECHNIQUE: CT scan of the chest performed using helical scanning technique with dynamic intravenous contrast injection. Images reviewed with lung, soft tissue and bone windows. Reconstructed coronal a nd sagittal MPR images reviewed. All images stored on PACS. All CT scanners at this facility use dose modulation, iterative reconstruction, and/or weight based d osing when appropriate to reduce radiation dose to as low as reasonably achievable (ALARA). [facility]: Dose Right [facility]: CareDose [facility]: Dose Right [facility]: Teradose 4D [facility]: Smart [employer] RADIATION DOSE: CT Rad equipment meets quality standard of care and radiation dose reduction techniq ues were employed. CTDIvol: 11.1 - 16.6 mGy. DLP: 1491 mGy-cm. . LIMITATIONS: None. FINDINGS: AXILLAE: Postsurgical changes in the right axilla with surgical clips noted small amount o f fluid. No focal masses or adenopathy. Left axilla is clean. CHEST WALL: Prior right mastectomy. Some skin thickening is noted. LUNGS: Minimal pleural thickening in the right base and minimal basilar atelectasis. PLEURA: Small right pleural effusion. THYROID: No masses or significant asymmetry. HILAR AND MEDIASTINAL STRUCTURES: No identified masses or abnormal nodes. AORTA AND GREAT VESSELS: No aneurysm. No dissection. PULMONARY ARTERIES: No identified pulmonary emboli. Study not optimized for the pulmonary arteries. HEART: No pericardial effusion. HARDWARE AND LIFELINES: Qonxry-K-Clbs is in place. BONES: No significant finding. OTHER: No other significant finding. IMPRESSION: Prior right mastectomy. Postsurgical changes in the right axilla and chest wall. No ad enopathy. No evidence of metastatic disease. COMPARISON: None. RADIATION DOSE: CT Rad equipment meets quality standard of care and radiation dose reduction techniq ues were employed. CTDIvol: 11.1 - 16.6 mGy. DLP: 1491 mGy-cm. mGy. TECHNIQUE: CT scan of the abdomen and pelvis performed with intravenous and oral contrast using patricia magdalena scanning technique with dynamic intravenous contrast injection. Images reviewed with lung, soft tissue and bone windows. Reconstructed coronal and sagittal MPR images reviewed. Delayed images for evaluation of the urinary system also acquired and evaluated. All images stored on PACS. All CT scanners at this facility use dose modulation, iterative reconstruction, and/or weight based d osing when appropriate to reduce radiation dose to as low as reasonably achievable (ALARA). [facility]: Dose Right [facility]: SureCare [facility]: Dose Right [facility]: Teradose 4D [facility]: EqualEyes FINDINGS: LIVER: Normal size. No masses. No dilated ducts. SPLEEN: Normal size. No focal lesions. PANCREAS: No masses. No significant calcifications. No adjacent inflammation or peripancreatic flui d collections. Pancreatic duct not dilated. GALLBLADDER: No identified stones by CT criteria. No inflammatory changes to suggest cholecystitis. ADRENAL GLANDS: No significant masses or asymmetry. RIGHT KIDNEY AND URETER: High attenuating right renal lesions. Hounsfield units range from 51 to 59. The largest measures 3.3 cm. On prior ultrasound right renal cysts were demonstrated. They have i ncreased in size since 2017. The high attenuation may be secondary to communication with the collect ing system. At least 5 separate lesions are identified. All are well-circumscribed. No significan t calcifications. No hydronephrosis or hydroureter. LEFT KIDNEY AND URETER: No solid masses. Small left renal cysts. No significant calcifications. No hydronephrosis or hydroureter. AORTA AND VESSELS: No aneurysm. No dissection. Renal arteries, SMA, celiac without stenosis. RETROPERITONEUM: No retroperitoneal adenopathy, hemorrhage or masses. LARGE AND SMALL BOWEL: No dilatation. No masses. No wall thickening. APPENDIX: Normal. ABDOMINAL WALL: No hernia or masses. PERITONEAL CAVITY: No free air. No free fluid. No peritoneal implants or masses. PELVIS: No mass or free fluid. Normal bladder. BONES: No significant or acute findings. OTHER: No other significant finding. IMPRESSION: Probable complex right renal cyst. No other significant findings in the abdomen or pelv is. No evidence of metastatic disease. TECHNICAL DOCUMENTATION: JOB ID: [id number] Quality ID # 436: Final reports with documentation of one or more dose reduction techniques (e.g., Au tomated exposure control, adjustment of the mA and/or kV according to patient size, use of iterative reconstruction technique) 2010 [employer]- All Rights Reserved Reading location - IP/workstation name: [email or web address]
--- NOTE | 2020-02-06 09:38 | RADIOLOGY REPORT (SQ) ---
EXAM DESCRIPTION: CT CHEST WITH; CT ABD/PELVIS WITH IV ONLY IMAGES COMPLETED DATE/TIME: 02/06/2020 9:02 am REASON FOR STUDY: BREAST CA (C50.311) C50.311 MALIG NEOPLM OF LOWER-INNER QUADRANT OF RIGHT FEMALE CONTRAST TYPE AND DOSE: contrast/concentration: Isovue 350.00 mg/ml; Total Contrast Delivered: 82.0 ml; Total Saline Delivered: 68.0 ml RENAL FUNCTION: Not available at time of dictation. COMPARISON: None. TECHNIQUE: CT scan of the chest performed using helical scanning technique with dynamic intravenous contrast injection. Images reviewed with lung, soft tissue and bone windows. Reconstructed coronal a nd sagittal MPR images reviewed. All images stored on PACS. All CT scanners at this facility use dose modulation, iterative reconstruction, and/or weight based d osing when appropriate to reduce radiation dose to as low as reasonably achievable (ALARA). [facility]: Dose Right [facility]: CareDose [facility]: Dose Right [facility]: Teradose 4D [facility]: Smart [employer] RADIATION DOSE: CT Rad equipment meets quality standard of care and radiation dose reduction techniq ues were employed. CTDIvol: 11.1 - 16.6 mGy. DLP: 1491 mGy-cm. . LIMITATIONS: None. FINDINGS: AXILLAE: Postsurgical changes in the right axilla with surgical clips noted small amount o f fluid. No focal masses or adenopathy. Left axilla is clean. CHEST WALL: Prior right mastectomy. Some skin thickening is noted. LUNGS: Minimal pleural thickening in the right base and minimal basilar atelectasis. PLEURA: Small right pleural effusion. THYROID: No masses or significant asymmetry. HILAR AND MEDIASTINAL STRUCTURES: No identified masses or abnormal nodes. AORTA AND GREAT VESSELS: No aneurysm. No dissection. PULMONARY ARTERIES: No identified pulmonary emboli. Study not optimized for the pulmonary arteries. HEART: No pericardial effusion. HARDWARE AND LIFELINES: Calcux-N-Dzei is in place. BONES: No significant finding. OTHER: No other significant finding. IMPRESSION: Prior right mastectomy. Postsurgical changes in the right axilla and chest wall. No ad enopathy. No evidence of metastatic disease. COMPARISON: None. RADIATION DOSE: CT Rad equipment meets quality standard of care and radiation dose reduction techniq ues were employed. CTDIvol: 11.1 - 16.6 mGy. DLP: 1491 mGy-cm. mGy. TECHNIQUE: CT scan of the abdomen and pelvis performed with intravenous and oral contrast using patricia magdalena scanning technique with dynamic intravenous contrast injection. Images reviewed with lung, soft tissue and bone windows. Reconstructed coronal and sagittal MPR images reviewed. Delayed images for evaluation of the urinary system also acquired and evaluated. All images stored on PACS. All CT scanners at this facility use dose modulation, iterative reconstruction, and/or weight based d osing when appropriate to reduce radiation dose to as low as reasonably achievable (ALARA). [facility]: Dose Right [facility]: SureCare [facility]: Dose Right [facility]: Teradose 4D [facility]: e[employer]works FINDINGS: LIVER: Normal size. No masses. No dilated ducts. SPLEEN: Normal size. No focal lesions. PANCREAS: No masses. No significant calcifications. No adjacent inflammation or peripancreatic flui d collections. Pancreatic duct not dilated. GALLBLADDER: No identified stones by CT criteria. No inflammatory changes to suggest cholecystitis. ADRENAL GLANDS: No significant masses or asymmetry. RIGHT KIDNEY AND URETER: High attenuating right renal lesions. Hounsfield units range from 51 to 59. The largest measures 3.3 cm. On prior ultrasound right renal cysts were demonstrated. They have i ncreased in size since 2017. The high attenuation may be secondary to communication with the collect ing system. At least 5 separate lesions are identified. All are well-circumscribed. No significan t calcifications. No hydronephrosis or hydroureter. LEFT KIDNEY AND URETER: No solid masses. Small left renal cysts. No significant calcifications. No hydronephrosis or hydroureter. AORTA AND VESSELS: No aneurysm. No dissection. Renal arteries, SMA, celiac without stenosis. RETROPERITONEUM: No retroperitoneal adenopathy, hemorrhage or masses. LARGE AND SMALL BOWEL: No dilatation. No masses. No wall thickening. APPENDIX: Normal. ABDOMINAL WALL: No hernia or masses. PERITONEAL CAVITY: No free air. No free fluid. No peritoneal implants or masses. PELVIS: No mass or free fluid. Normal bladder. BONES: No significant or acute findings. OTHER: No other significant finding. IMPRESSION: Probable complex right renal cyst. No other significant findings in the abdomen or pelv is. No evidence of metastatic disease. TECHNICAL DOCUMENTATION: JOB ID: [id number] Quality ID # 436: Final reports with documentation of one or more dose reduction techniques (e.g., Au tomated exposure control, adjustment of the mA and/or kV according to patient size, use of iterative reconstruction technique) 2010 [employer]- All Rights Reserved Reading location - IP/workstation name: [email or web address]
--- NOTE | 2020-02-06 12:17 | RADIOLOGY REPORT (SQ) ---
EXAM DESCRIPTION: NM WHOLE BODY BONE SCAN IMAGES COMPLETED DATE/TIME: 02/06/2020 12:07 pm REASON FOR STUDY: BREAST CA (C50.311) C50.311 MALIG NEOPLM OF LOWER-INNER QUADRANT OF RIGHT FEMALE COMPARISON: CT chest abdomen and pelvis done earlier the same day. RADIONUCLIDE AND DOSE: 21.8 millicuries Tc99m HDP. The route of agent administration: Intravenous. ADDITIONAL DRUGS AND DOSES: None. TECHNIQUE: Routine delayed images at 3 hour post radionuclide injection acquired of the bony skeleto n including anterior and posterior whole-body projections and additional focused images as needed. LIMITATIONS: None. FINDINGS: BONES: Mild increased uptake in both shoulders consistent with degenerative disease. No f indings to suggest metastatic disease. Minimal uptake in the mid dorsal spine is consistent with deg enerative changes well. Review of the CT reveals prominent anterior osteophytes at this region and e ndplate sclerosis. KIDNEYS: Symmetric excretion without obstruction. OTHER: No other significant finding. IMPRESSION: No scintigraphic evidence of bony metastatic disease. COMMENT: Quality measure 147: Current bone scan is compared with any available plain radiographs, p rior bone scans, and CT/MRI. TECHNICAL DOCUMENTATION: JOB ID: [id number] 2010 [employer]- All Rights Reserved Reading location - IP/workstation name: [email or web address]
== END ==
LOC: RAD 08:04
PROVIDERS: ATTEND Internal Medicine
DX: C50.311 Malignant neoplasm of lower-inner quadrant of right female breast (principal); Z90.11 Acquired absence of right breast and nipple
CPT/HCPCS: 78306; 71260; 74177; A9561; Q9969

== ENCOUNTER → 2020-07-25 | Outpatient (CLI) | payer MEDICARE ==
--- NOTE | 2020-07-25 10:32 | WOMENS IMAGING REPORT ---
EXAM DESCRIPTION: BONE DENSITY HIP/SPINE IMAGES COMPLETED DATE/TIME: 07/25/2020 10:05 am REASON FOR STUDY: M81.0 AGE-RELATED OSTEOPOROSIS W/O CURRENT PATHOLOGICAL FRACTURE M81.0 AGE-RELATE D OSTEOPOROSIS W/O CURRENT PATHOLOGICAL FRAC COMPARISON: None. TECHNIQUE: Dual-Energy X-ray Absorptiometry (DEXA) of the AP Spine and Hip. LIMITATIONS: None. FINDINGS: LUMBAR SPINE: The bone mineral density (BMD) measured from L1-L4 in the AP projection correlates with a T-score of -1.0, which is normal as defined by the World Health Organization. BMD Change vs Baseline: N/A HIP: The bone mineral density (BMD) measured in the left hip correlates with a T-score of -1.4, which is o steopenia as defined by the World Health Organization. BMD Change vs Baseline: N/A 10 year Fracture Risk Assessment: Major Osteoporotic Fracture: 4.1% Hip Fracture: 0.5% IMPRESSION: 1. LUMBAR SPINE WHO CLASSIFICATION: NORMAL. 2. HIP WHO CLASSIFICATION: OSTEOPENIA. OVERALL ASSESSMENT: WHO CLASSIFICATION: OSTEOPENIA. COMMENT: The World Health Organization defines low BMD as follows: T-score: Normal: At or above -1.0 Osteopenia: Between -1.0 and -2.5 Osteoporosis: At or below -2.5 without fractures Established osteoporosis: At or below -2.5 with fractures In general, you may wish to consider: Diagnosis Treatment Follow-up DEXA Normal BMD Prevention 2-3 years Osteopenia Prevention/Therapy 1-2 years Osteoporosis Therapy Yearly TECHNICAL DOCUMENTATION: JOB ID: [id number] 2010 [employer]- All Rights Reserved Reading location - IP/workstation name: [email or web address]
== END ==
LOC: WI 09:30
PROVIDERS: ATTEND Physician Assistant Medical
DX: M81.0 Age-related osteoporosis without current pathological fracture (principal)
CPT/HCPCS: 77080